=== PATIENT | female | born 1985 | race Caucasian/White ===

== ENCOUNTER 2016-11-29 19:39 | Emergency (ER) | payer BC ==
[2016-11-29 20:08] VITALS: BP 150/86
--- NOTE | 2016-11-29 20:47 | ER Document Report ---
ED Medical Screen (RME) - General Stated Complaint: SORE TROATH Time seen by provider: 20:45 Mode of Arrival: Ambulatory Information source: Patient Notes: 31-year-old female with a sore throat for 3 days has exudate on her right tonsil which is getting larger. There is anterior cervical lymph nodes. No fever. no antibiotics. Airway is open. Uvula is midline. I have greeted and performed a rapid initial assessment of this patient. A comprehensive ED assessment, evaluation of the patient, analysis of test results , and completion of the medical decision making process will be conducted by additional ED providers. TRAVEL OUTSIDE OF THE [place] IN LAST 30 DAYS: No - Related Data Allergies/Adverse Reactions: No Known Allergies Allergy (Verified 08/26/15 20:45) Past Medical History - Past Medical History Cardiac Medical History: Denies: Hx Coronary Artery Disease, Hx Hypertension Pulmonary Medical History: Denies: Hx Asthma Endocrine Medical History: Denies: Hx Diabetes Mellitus Type 1, Hx Diabetes Mellitus Type 2 Renal/ Medical History: Reports: Hx Kidney Stones, Hx Pelvic Inflammatory Disease Past Surgical History: Reports: Hx Cholecystectomy, Hx Gynecologic Surgery - BTL , Hx Tubal Ligation - Immunizations Immunizations up to date: Yes Hx Diphtheria, Pertussis, Tetanus Vaccination: Yes Physical Exam - Vital signs Vitals: Temp Pulse Resp BP Pulse Ox 98.5 F 88 17 150/86 H 100 11/29/16 20:06 11/29/16 20:06 11/29/16 20:06 11/29/16 20:06 11/29/16 20:06 Course - Vital Signs Vital signs: Temp Pulse Resp BP Pulse Ox 98.5 F 88 17 150/86 H 100 11/29/16 20:06 11/29/16 20:06 11/29/16 20:06 11/29/16 20:06 11/29/16 20:06
[2016-11-29 22:11] LABS: ABSOLUTE EOSINOPHILS # (AUTO) 0.1 10^3/uL (0.0-0.6); ABSOLUTE LYMPHOCYTES (AUTO) 1.3 10^3/uL (0.5-4.7); ABSOLUTE MONOCYTES (AUTO) 1.3 10^3/uL (0.1-1.4); ABSOLUTE NEUT (AUTO) 10.4 10^3/uL (1.7-8.2); BASOPHILS % (AUTO) 0.3 % (0-2); EOSINOPHILS % (AUTO) 0.7 % (0-6); HEMOGLOBIN 13.5 g/dL (12.0-15.5); HGB HCT DIFFERENCE 1.5; LYMPHOCYTES % (AUTO) 9.6 % (13-45); MEAN CORPUSCULAR HGB CONC 34.7 g/dL (32.0-36.0); MEAN CORPUSCULAR VOLUME 95 fl (80-97); RED CELL DISTRIBUTION WIDTH 12.3 % (11.5-14.0); SEGMENTED NEUTROPHILS % (AUTO) 79.4 % (42-78); WHITE BLOOD COUNT 13.1 10^3/uL (4.0-10.5)
[2016-11-29] MEDS ORDERED: LIDOCAINE 2% VISCOUS SOLN 20 ML UDCUP PO ONE (23:25)
--- NOTE | 2016-11-29 23:25 | ER Document Report ---
ED ENT - General Mode of Arrival: Ambulatory Information source: Patient TRAVEL OUTSIDE OF THE [place] IN LAST 30 DAYS: No - HPI Patient complains to provider of: Throat problem Onset: Other - x3 days Onset/Duration: Persistent Associated symptoms: Chills <BARBIE JACKSON - Last Filed: 11/30/16 03:07> <RANDEE BENNETT - Last Filed: 11/30/16 03:25> - General Chief Complaint: Sore Throat Stated Complaint: SORE TROATH Notes: Patient is a 31-year-old female that presents to the emergency department today with complaints of right-sided throat pain 3 days. Patient states it feels like "something is cutting her throat" when she swallows. Patient states she has had chills but denies any fevers. (BARBIE JACKSON) - Related Data Allergies/Adverse Reactions: No Known Allergies Allergy (Verified 11/29/16 22:44) Past Medical History - General Information source: Patient, [facility] Records - Social History Smoking Status: Never Smoker Cigarette use (# per day): No Frequency of alcohol use: Rare Drug Abuse: None Lives with: Family Family History: Reviewed & Not Pertinent Patient has suicidal ideation: No Patient has homicidal ideation: No Renal/ Medical History: Reports: Hx Kidney Stones, Hx Pelvic Inflammatory Disease Past Surgical History: Reports: Hx Cholecystectomy, Hx Gynecologic Surgery - bilateral tubal ligation, Hx Tubal Ligation - Immunizations Immunizations up to date: Yes Hx Diphtheria, Pertussis, Tetanus Vaccination: Yes <BARBIE JACKSON - Last Filed: 11/30/16 03:07> Review of Systems - Review of Systems Constitutional: See HPI, Chills. denies: Fever EENT: See HPI, Throat pain - right sided Cardiovascular: No symptoms reported Respiratory: No symptoms reported Gastrointestinal: No symptoms reported Genitourinary: No symptoms reported Female Genitourinary: No symptoms reported Musculoskeletal: No symptoms reported Skin: No symptoms reported Hematologic/Lymphatic: No symptoms reported Neurological/Psychological: No symptoms reported -: Yes All other systems reviewed and negative <BARBIE JACKSON - Last Filed: 11/30/16 03:07> Physical Exam <BARBIE JACKSON - Last Filed: 11/30/16 03:07> <RANDEE BENNETT - Last Filed: 11/30/16 03:25> - Vital signs Vitals: Temp Pulse Resp BP Pulse Ox 98.5 F 88 17 150/86 H 100 11/29/16 20:06 11/29/16 20:06 11/29/16 20:06 11/29/16 20:06 11/29/16 20:06 (BARBIE JACKSON) (RANDEE BENNETT) - Notes Notes: Physical Exam: General: Alert, appears well. HEENT: Normocephalic. Atraumatic. PERRL. Extraocular movements intact. Tonsilith on right tonsil, no erythema or exudate. Neck: Supple. Respiratory: No respiratory distress. Abdominal: Normal Inspection. No distension. Extremities: Moves all four extremities. Neurological: Normal cognition. AAOx4. Normal speech. Psychological: Normal affect. Normal Mood. Skin: Warm. Dry. Normal color. (BARBIE JACKSON) Course - Laboratory Result Diagrams: 11/29/16 21:36 <BARBIE JACKSON - Last Filed: 11/30/16 03:07> - Laboratory Result Diagrams: 11/29/16 21:36 <RANDEE BENNETT - Last Filed: 11/30/16 03:25> - Re-evaluation Re-evalutation: 11/30/16 Patient with stable vitals. No fever. Symptoms and exam are consistent with tonsillith. Patient encouraged to use Listerine and saltwater gargles. Can use lemon drops. No evidence for strep or mono. Discharge home and is to follow-up with her doctor. Stable for discharge. (RANDEE BENNETT) - Vital Signs Vital signs: Temp Pulse Resp BP Pulse Ox 98.5 F 88 17 150/86 H 100 11/29/16 20:06 11/29/16 20:06 11/29/16 20:06 11/29/16 20:06 11/29/16 20:06 (BARBIE JACKSON) (RANDEE BENNETT) - Laboratory Laboratory results interpreted by il: 11/29/16 21:36 WBC 13.1 H Seg Neutrophils % 79.4 H Lymphocytes % 9.6 L Absolute Neutrophils 10.4 H (BARBIE JACKSON) (RANDEE BENNETT) Discharge <BARBIE JACKSON - Last Filed: 11/30/16 03:07> <RANDEE BENNETT - Last Filed: 11/30/16 03:25> - Discharge Clinical Impression: Tonsillith Condition: Stable Disposition: HOME, SELF-CARE Prescriptions: Lidocaine HCl [Xylocaine Viscous] 5 ml PO Q6H PRN #100 ml PRN Reason: Referrals: DICK CORCORAN MD [Primary Care Provider] - Follow up as needed Scribe Attestation: 11/30/16 03:25 I personally performed the services described in the documentation, reviewed and edited the documentation which was dictated to the scribe in my presence, and it accurately records my words and actions. (RANDEE BENNETT) Scribe Documentation - Scribe Written by Frank:: Frank Damon, [id number] 11/30/2016 acting as scribe for :: Nikkie <BARBIE JACKSON - Last Filed: 11/30/16 03:07>
== END 2016-11-29 23:45 | disposition home or self-care (01) ==
LOC: ER 19:39
DX: J35.8 Other chronic diseases of tonsils and adenoids (principal); R68.83 Chills (without fever)
CPT/HCPCS: 99283; 36415; 87070; 87880; 85025; 86308; J3490

== ENCOUNTER 2017-04-15 07:28 | Emergency (ER) | payer BC ==
[2017-04-15] MEDS ORDERED: IBUPROFEN 800 MG TABLET PO ONE (07:55)
--- NOTE | 2017-04-15 08:00 | ER Document Report ---
HPI - HPI Patient complains to provider of: shoulder pain Onset: Other - past two days Onset/Duration: Gradual - after heavy lifting at work Quality of pain: Achy, Burning Pain Level: 3 Exacerbated by: Other - heavy lifting Relieved by: Remaining still Similar symptoms previously: Yes - h/o cervical pinched nerve Recently seen / treated by doctor: No - REPRODUCTIVE Reproductive: DENIES: : Past Medical History - Social History Smoking Status: Unknown if Ever Smoked Family History: Reviewed & Not Pertinent Patient has suicidal ideation: No Patient has homicidal ideation: No - Past Medical History Cardiac Medical History: Denies: Hx Coronary Artery Disease, Hx Hypertension Pulmonary Medical History: Denies: Hx Asthma Endocrine Medical History: Denies: Hx Diabetes Mellitus Type 1, Hx Diabetes Mellitus Type 2 Renal/ Medical History: Reports: Hx Kidney Stones, Hx Pelvic Inflammatory Disease. Denies: Hx Peritoneal Dialysis Past Surgical History: Reports: Hx Cholecystectomy, Hx Gynecologic Surgery - bilateral tubal ligation, Hx Tubal Ligation - Immunizations Immunizations up to date: Yes Hx Diphtheria, Pertussis, Tetanus Vaccination: Yes Vertical Provider Document - CONSTITUTIONAL Agree With Documented VS: Yes Exam Limitations: No Limitations General Appearance: WD/WN, No Apparent Distress - INFECTION CONTROL TRAVEL OUTSIDE OF THE [place] IN LAST 30 DAYS: No - HEENT HEENT: Atraumatic, Normal ENT Exam, Normocephalic, PERRLA - NECK Neck: Normal Inspection. negative: Lymphadenopathy-Left, Lymphadenopathy-Right - RESPIRATORY Respiratory: Breath Sounds Normal, No Respiratory Distress, Chest Non-Tender. negative: Rales, Rhonchi, Wheezing O2 Sat by Pulse Oximetry: 99 - CARDIOVASCULAR Cardiovascular: Regular Rate, Regular Rhythm, No Murmur Pulses: Normal: Radial, Carotid - MUSCULOSKELETAL/EXTREMETIES Musculoskeletal/Extremeties: MAEW, FROM, Tender - palpation of left trapezius, No Edema. negative: Eccymosis - NEURO Level of Consciousness: Awake, Alert, Appropriate Motor/Sensory: No Motor Deficit, No Sensory Deficit - DERM Integumentary: Warm, Dry, No Rash Course - Re-evaluation Re-evalutation: 04/15/17 07:59 Patient is a 31-year-old female who is hemodynamic stable, no acute distress and afebrile. Presentation is consistent with an acute muscle strain of the left trapezius. Patient does not have any focal neurologic deficits, nuchal rigidity. Low index for suspicion of acute subarachnoid hemorrhage, meningitis or mass. Low suspicion for acute life-threatening etiology with intact neuro exam therefore no additional imaging or laboratory testing is indicated. Will discharge patient home with strict follow-up with PCP for within the next week. - Vital Signs Vital signs: Temp Pulse Resp BP Pulse Ox 98 F 74 16 137/88 H 99 04/15/17 07:32 04/15/17 07:32 04/15/17 07:32 04/15/17 07:32 04/15/17 07:32 Discharge - Discharge Clinical Impression: Muscle strain Condition: Good Disposition: HOME, SELF-CARE Instructions: Muscle Strain ([facility]), Exercise Program for the Shoulder ([facility]), Warm Packs ([facility]) Additional Instructions: Please follow up with your primary care provider regarding today's visit if symptoms persist Prescriptions: Ibuprofen [Motrin 800 mg Tablet] 800 mg PO Q8H PRN #30 tab PRN Reason: Methylprednisolone [Medrol Dosepack (4 mg/Tab) 21 Tab/Dosepak] 4 mg PO ASDIR PRN #21 tab.ds.pk PRN Reason: Forms: Elevated Blood Pressure, Special Work Note, Return to Work
[2017-04-15 08:48] VITALS: BP 132/72
== END 2017-04-15 08:48 | disposition home or self-care (01) ==
LOC: ER 07:28
DX: T14.8 Other injury of unspecified body region (principal); M25.519 Pain in unspecified shoulder; X50.0XXA Overexertion from strenuous movement or load, initial encounter; Y99.0 Civilian activity done for income or pay
CPT/HCPCS: 99283

== ENCOUNTER 2018-01-12 08:10 | Emergency (ER) | payer BC ==
[2018-01-12 08:17] VITALS: BP 141/69
--- NOTE | 2018-01-12 08:43 | ER Document Report ---
ED General - General Chief Complaint: Sore Throat Stated Complaint: SORE THROAT Time Seen by Provider: 01/12/18 08:43 Mode of Arrival: Ambulatory Information source: Patient TRAVEL OUTSIDE OF THE [place] IN LAST 30 DAYS: No - HPI Notes: 31-year-old female presents today with sore throat 2 days. Noticed a exudate in the back of her throat this morning. Denies fevers reports chills. Pain is 5 out of 10, throbbing achy. She does have sick contacts around. He was diagnosed with strep. Denies any issues swallowing, drooling or trismus. Has tried [id number] Tylenol with some relief. Worse with time, nothing makes better. Denies shortness of breath, dyspnea, nausea, vomiting, diarrhea , abdominal pain, headaches, wheezing, ST, URI, neck pain, weakness, bowel or bladder dysfunction, saddle anesthesia, numbness or tingling in bilateral upper or lower extremities equally, muscle paralysis, weakness in bilateral upper or lower extremities equally or rash. - Related Data Allergies/Adverse Reactions: No Known Allergies Allergy (Verified 01/12/18 08:11) Past Medical History - General Information source: Patient - Social History Smoking Status: Unknown if Ever Smoked Family History: Reviewed & Not Pertinent - Past Medical History Cardiac Medical History: Denies: Hx Coronary Artery Disease, Hx Hypertension Pulmonary Medical History: Denies: Hx Asthma Endocrine Medical History: Denies: Hx Diabetes Mellitus Type 1, Hx Diabetes Mellitus Type 2 Renal/ Medical History: Reports: Hx Kidney Stones, Hx Pelvic Inflammatory Disease. Denies: Hx Peritoneal Dialysis Past Surgical History: Reports: Hx Cholecystectomy, Hx Gynecologic Surgery - bilateral tubal ligation, Hx Tubal Ligation - Immunizations Immunizations up to date: Yes Hx Diphtheria, Pertussis, Tetanus Vaccination: Yes Review of Systems - Review of Systems Constitutional: No symptoms reported EENT: See HPI Cardiovascular: No symptoms reported Respiratory: No symptoms reported Gastrointestinal: No symptoms reported Genitourinary: No symptoms reported Female Genitourinary: No symptoms reported Musculoskeletal: No symptoms reported Skin: No symptoms reported Hematologic/Lymphatic: No symptoms reported Neurological/Psychological: No symptoms reported Physical Exam - Vital signs Vitals: Temp Pulse Resp BP Pulse Ox 98.2 F 99 18 141/69 H 97 01/12/18 08:14 01/12/18 08:14 01/12/18 08:14 01/12/18 08:14 01/12/18 08:14 - Notes Notes: PHYSICAL EXAMINATION: GENERAL: Well-appearing, well-nourished and in no acute distress. HEAD: Atraumatic, normocephalic. EYES: Pupils equal round and reactive to light, extraocular movements intact, conjunctiva are normal. ENT: Nares patent, oropharynx clear with exudates and erythema. Moist mucous membranes. NECK: Normal range of motion, supple without lymphadenopathy LUNGS: Breath sounds clear to auscultation bilaterally and equal. No wheezes rales or rhonchi. HEART: Regular rate and rhythm without murmurs ABDOMEN: Soft, nontender, nondistended abdomen. No guarding, no rebound. No masses appreciated. Female : deferred Musculoskeletal: Normal range of motion, no pitting or edema. No cyanosis. NEUROLOGICAL: Cranial nerves grossly intact. Normal speech, normal gait. Normal sensory, motor exams PSYCH: Normal mood, normal affect. SKIN: Warm, Dry, normal turgor, no rashes or lesions noted. Course - Re-evaluation Re-evalutation: 01/12/18 09:49 Reevaluation patient, discussed with her that rapid strep is negative that she clinically appears to have strep pharyngitis. Will start her on oral antibiotic , take 3 times a day for 10 days. Salt water gargles. Take [id number] improvement Tylenol as needed. Change to patient 2 days. Follow-up with primary care provider, symptoms become worse return to the emergency room. Patient verbalized understanding plan of care and agree with plan of care. Patient was discharged home. - Vital Signs Vital signs: Temp Pulse Resp BP Pulse Ox 98.2 F 99 18 141/69 H 97 01/12/18 08:14 01/12/18 08:14 01/12/18 08:14 01/12/18 08:14 01/12/18 08:14 Discharge - Discharge Clinical Impression: Tonsillar exudate Condition: Good Disposition: HOME, SELF-CARE Instructions: Strep Throat ([facility]) Prescriptions: Amoxicillin Trihydrate [Amoxil 500 mg Capsule] 500 mg PO TID #30 cap Forms: Return to Work Referrals: DICK CORCORAN MD [Primary Care Provider] - Follow up in 3-5 days (prn)
== END 2018-01-12 09:55 | disposition home or self-care (01) ==
LOC: ER 08:10
DX: R09.89 Other specified symptoms and signs involving the circulatory and respiratory systems (principal); J02.9 Acute pharyngitis, unspecified; R68.83 Chills (without fever); Z20.818 Contact with and (suspected) exposure to other bacterial communicable diseases
CPT/HCPCS: 87070; 87880; 99283

== ENCOUNTER 2018-01-19 23:31 | Emergency (ER) | payer BC ==
[2018-01-20] MEDS ORDERED: DEXAMETHASONE SOD PHOS INJ 10 MG/1 ML VIAL IM ONE (01:23)
--- NOTE | 2018-01-20 01:25 | ER Document Report ---
HPI - HPI Pain Level: 4 Context: Patient is a 32-year-old female presents emergency department after being evaluated approximately 1 week ago and diagnosed with pharyngitis and sent home on amoxicillin. Patient states that she still has sinus congestion, sore throat , nonproductive cough. States it is worse at night when she lies flat. She does admit to history of postnasal drip but does not take a regular allergy medication. She states that she does get some improvement with Benadryl. Denies any fevers or chills, swelling, shortness of breath, dyspnea on exertion , chest pain - CONSTITUTIONAL Constitutional: DENIES: Fever, Chills - EENT EENT: REPORTS: Sore Throat - NEURO Neurology: REPORTS: Headache - GASTROINTESTINAL Gastrointestinal: DENIES: Abdominal Pain - URINARY Urinary: DENIES: Dysuria - REPRODUCTIVE Reproductive: DENIES: : Past Medical History - Social History Smoking Status: Never Smoker Chew tobacco use (# tins/day): No Frequency of alcohol use: None Drug Abuse: None Family History: Reviewed & Not Pertinent Patient has suicidal ideation: No Patient has homicidal ideation: No - Past Medical History Cardiac Medical History: Denies: Hx Coronary Artery Disease, Hx Hypertension Pulmonary Medical History: Denies: Hx Asthma Endocrine Medical History: Denies: Hx Diabetes Mellitus Type 1, Hx Diabetes Mellitus Type 2 Renal/ Medical History: Reports: Hx Kidney Stones, Hx Pelvic Inflammatory Disease. Denies: Hx Peritoneal Dialysis Past Surgical History: Reports: Hx Cholecystectomy, Hx Gynecologic Surgery - bilateral tubal ligation, Hx Tubal Ligation - Immunizations Immunizations up to date: Yes Hx Diphtheria, Pertussis, Tetanus Vaccination: Yes Vertical Provider Document - CONSTITUTIONAL Agree With Documented VS: Yes Notes: PHYSICAL EXAM GENERAL: Alert, interacts well. HEENT: NCAT, pale conjunctiva, extraocular movements intact, pupils PERRL. external ear normal, no evidence of external auditory canal tenderness, blood/ drainage, cerumen impaction, TM intact without evidence of effusion, bulging, injection, MMM, Uvula midline. Airway patent. No evidence of tonsillar enlargement, peritonsillar abscess, retropharyngeal abscess. Minimal pharyngeal erythema NECK: Full range of motion. Supple. Trachea midline. LUNGS: Clear to auscultation bilaterally, no wheezes, rales, or rhonchi. No respiratory distress. HEART: Regular rate and rhythm. No murmurs, gallops, or rubs. EXTREMITIES: Moves all 4 extremities spontaneously. No edema, radial and dorsalis pedis pulses 2/4 bilaterally. No cyanosis. NEUROLOGICAL: Alert and oriented x4. Normal speech. PSYCH: Normal affect, normal mood. SKIN: Warm, dry, normal turgor. No rashes or lesions noted. - INFECTION CONTROL TRAVEL OUTSIDE OF THE [place] IN LAST 30 DAYS: No Course - Re-evaluation Re-evalutation: 01/20/18 01:24 Presentation is most consistent with a viral upper respiratory infection with associated postnasal drip.. Patient is overall well appearance, vitals within normal limits, well-hydrated. Patient denies any headache, neck pain, and has no evidence of meningismus on examination. Lungs are clear bilaterally. No evidence of respiratory distress. Based on clinical exam and history, I do not suspect an acute pneumonia, meningitis, strep pharyngitis, or an acute encephalitis. No laboratory or imaging testing is indicated at this time. Will discharge patient with return precautions and followup recommendations. They are in agreement this plan have verbalized understanding return precautions. - Vital Signs Vital signs: Temp Pulse Resp BP Pulse Ox 98.3 F 88 18 145/75 H 99 01/19/18 23:38 01/19/18 23:38 01/19/18 23:38 01/19/18 23:38 01/19/18 23:38 Discharge - Discharge Clinical Impression: Post-nasal drip Condition: Good Disposition: HOME, SELF-CARE Additional Instructions: Your symptoms today are consistent with postnasal drip. Please take an over-the -counter antihistamine for the daytime such as Claritin or Jacqueline. He can take up to 50 mg of Benadryl at night. Also start taking Afrin over-the- counter which will help with nasal secretions. He can also utilize an over-the- counter decongestant such as pseudoephedrine. Please be sure to rest her throat drink plenty of clear fluids. You can also benefit from TheraFlu p.m. to help with sleeping. Referrals: DICK CORCORAN MD [Primary Care Provider] - Follow up as needed
[2018-01-20 01:51] VITALS: BP 138/75
== END 2018-01-20 01:50 | disposition home or self-care (01) ==
LOC: ER 23:31
DX: R09.82 Postnasal drip (principal); J02.9 Acute pharyngitis, unspecified; R09.81 Nasal congestion; R05 Cough; R51 Headache
CPT/HCPCS: 99282; 96372; J1100

== ENCOUNTER 2018-07-30 11:48 | Emergency (ER) | payer SELFPAY ==
--- NOTE | 2018-07-30 13:11 | ER Document Report ---
HPI - HPI Patient complains to provider of: left arm and leg pain Onset: Other - months Onset/Duration: Intermittent, Persistent Pain Level: 3 Context: 32 yo female [employer] [place] [employer] c/o intermittent left posterior neck, shoulder pain that radiates into hand causing 3-4-5 fingers to get tingly at times. 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 Also intermitten left SI joint area pain that radiates in buttocks and down leg at times, worse after sitting. Associated Symptoms: Other - see above Exacerbated by: Sitting, Movement - left arm chopping and abduction of shoulder Relieved by: Denies Similar symptoms previously: Yes Recently seen / treated by doctor: No - ROS ROS below otherwise negative: Yes Systems Reviewed and Negative: Yes All other systems reviewed and negative - CONSTITUTIONAL Constitutional: DENIES: Fever, Chills - EENT EENT: DENIES: Sore Throat, Ear Pain, Eye problems - NEURO Neurology: REPORTS: Headache. DENIES: Weakness, Vision blurred, Dizzinesss / Vertigo - CARDIOVASCULAR Cardiovascular: DENIES: Chest pain - RESPIRATORY Respiratory: DENIES: Trouble Breathing, Coughing - GASTROINTESTINAL Gastrointestinal: DENIES: Abdominal Pain, Black / Bloody Stools - URINARY Urinary: DENIES: Dysuria, Urgency, Frequency - REPRODUCTIVE Reproductive: DENIES: : - MUSCULOSKELETAL Musculoskeletal: REPORTS: Extremity pain Past Medical History - General Information source: Patient - Social History Smoking Status: Unknown if Ever Smoked Chew tobacco use (# tins/day): No Frequency of alcohol use: Occasional Drug Abuse: None Lives with: Spouse/Significant other Family History: Reviewed & Not Pertinent Patient has suicidal ideation: No Patient has homicidal ideation: No Renal/ Medical History: Reports: Hx Kidney Stones, Hx Pelvic Inflammatory Disease. Denies: Hx Peritoneal Dialysis Past Surgical History: Reports: Hx Cholecystectomy, Hx Gynecologic Surgery - bilateral tubal ligation, Hx Tubal Ligation - Immunizations Immunizations up to date: Yes Hx Diphtheria, Pertussis, Tetanus Vaccination: Yes Vertical Provider Document - CONSTITUTIONAL Agree With Documented VS: Yes Exam Limitations: No Limitations General Appearance: No Apparent Distress - INFECTION CONTROL TRAVEL OUTSIDE OF THE [place] IN LAST 30 DAYS: No - HEENT HEENT: Normocephalic - NECK Neck: Supple - tender left lateral neck and trapezius - BACK Back: Normal Inspection - tender over left SI joint - MUSCULOSKELETAL/EXTREMETIES Musculoskeletal/Extremeties: ANGELES FROM, Tender - see above - NEURO Level of Consciousness: Alert Motor/Sensory: No Sensory Deficit. negative: Weak Motor Strength LUE, Weak Motor Strength LLE Deep Tendon Reflexes: 2+ - kary patellar, 2+ right achilles, 1+ left achilles, 5 + strength to arms and legs/feet/gt toes - DERM Integumentary: No Rash Course - Vital Signs Vital signs: Temp Pulse Resp BP Pulse Ox 97.6 F 90 16 126/75 H 100 07/30/18 12:02 07/30/18 12:02 07/30/18 12:02 07/30/18 12:02 07/30/18 12:02 Discharge - Discharge Clinical Impression: Arm paresthesia, left Left low back pain Qualifiers: Chronicity: acute Sciatica presence: with sciatica Sciatica laterality: sciatica of left side Qualified Code(s): M54.42 - Lumbago with sciatica, left side Strain of left trapezius muscle Qualifiers: Encounter type: initial encounter Qualified Code(s): S46.812A - Strain of other muscles, fascia and tendons at shoulder and upper arm level, left arm, initial encounter Cervical strain Qualifiers: Encounter type: initial encounter Qualified Code(s): S16.1XXA - Strain of muscle, fascia and tendon at neck level, initial encounter Condition: Good Disposition: HOME, SELF-CARE Instructions: Low Back Pain ([facility]), Muscle Relaxers ([facility]), Muscle Strain ([facility]), Myalagia (Muscle Pain) ([facility]), Neck Injury (Cervical Strain) ([facility]), Numbness or Paresthesia ([facility]), Warm Packs ([facility]) Additional Instructions: See your doctor for follow-up because she can order the MRIs as an outpatient basis to evaluate the cervical spine and the lumbar spine may be causing this problem Practice using her body correctly at work that we discussed Muscle relaxer up to 3 times a day Motrin 800 mg up to 3 times a day for inflammation Tylenol up to 4000 mg a day for pain Warm compress Return to the emergency room if worsening symptoms Prescriptions: Ibuprofen [Motrin 800 mg Tablet] 800 mg PO Q8HP PRN #30 tablet PRN Reason: Cyclobenzaprine HCl [Flexeril 10 Mg Tablet] 10 mg PO TIDP PRN #20 tablet PRN Reason: Forms: Return to Work Referrals: SEVERIANO JI MD [ACTIVE STAFF] - Follow up as needed
[2018-07-30 14:10] VITALS: BP 133/73
== END 2018-07-30 14:10 | disposition home or self-care (01) ==
LOC: ER 11:48
DX: S46.812A Strain of other muscles, fascia and tendons at shoulder and upper arm level, left arm, initial encounter (principal); S16.1XXA Strain of muscle, fascia and tendon at neck level, initial encounter; M54.42 Lumbago with sciatica, left side; R20.0 Anesthesia of skin; M79.602 Pain in left arm; M79.605 Pain in left leg; M54.2 Cervicalgia; M25.512 Pain in left shoulder; M79.642 Pain in left hand; R51 Headache; X58.XXXA Exposure to other specified factors, initial encounter
CPT/HCPCS: 99283

== ENCOUNTER 2018-09-16 05:18 | Emergency (ER) | payer SELFPAY ==
[2018-09-16 05:34] VITALS: BP 146/79
[2018-09-16] MEDS ORDERED: KETOROLAC TROMETHAMINE 60 MG/2 ML SDV IM ONE (06:42)
[2018-09-16] MEDS ORDERED: CYCLOBENZAPRINE HCL 10 MG TABLET PO ONE (06:42)
--- NOTE | 2018-09-16 06:48 | ER Document Report ---
ED General - General Chief Complaint: Back Pain Stated Complaint: LEFT SHOULDER PAIN Time Seen by Provider: 09/16/18 06:38 Mode of Arrival: Ambulatory Information source: Patient Notes: 32-year-old female presents emergency department complaints of upper back pain over the last few days. Patient states that she does do heavy lifting at work and thinks that she might of overworked herself. She states that she has had similar pain in the past. She does have a history of pinched nerves in the cervical spine. Patient states that she has tried Tylenol without any relief of symptoms. She states that Motrin upsets her stomach and has not been taking this. Patient denies any numbness tingling or weakness. Patient has full range of motion of her upper extremities. She denies any chest pain or difficulty breathing. TRAVEL OUTSIDE OF THE [place] IN LAST 30 DAYS: No - HPI Onset: Last week Onset/Duration: Gradual Quality of pain: Cramping Severity: Mild Pain Level: 1 Associated symptoms: None Exacerbated by: Movement Relieved by: Denies Similar symptoms previously: Yes Recently seen / treated by doctor: No - Related Data Allergies/Adverse Reactions: No Known Allergies Allergy (Verified 09/16/18 06:21) Past Medical History - General Information source: Patient - Social History Smoking Status: Never Smoker Family History: Reviewed & Not Pertinent Patient has suicidal ideation: No Patient has homicidal ideation: No - Past Medical History Cardiac Medical History: Denies: Hx Coronary Artery Disease, Hx Hypertension Pulmonary Medical History: Denies: Hx Asthma Endocrine Medical History: Denies: Hx Diabetes Mellitus Type 1, Hx Diabetes Mellitus Type 2 Renal/ Medical History: Reports: Hx Kidney Stones, Hx Pelvic Inflammatory Disease. Denies: Hx Peritoneal Dialysis Past Surgical History: Reports: Hx Cholecystectomy, Hx Gynecologic Surgery - bilateral tubal ligation, Hx Tubal Ligation - Immunizations Immunizations up to date: Yes Hx Diphtheria, Pertussis, Tetanus Vaccination: Yes Review of Systems - Review of Systems Constitutional: No symptoms reported EENT: No symptoms reported Cardiovascular: No symptoms reported Respiratory: No symptoms reported Gastrointestinal: No symptoms reported Genitourinary: No symptoms reported Female Genitourinary: No symptoms reported Musculoskeletal: Muscle pain Skin: No symptoms reported Neurological/Psychological: No symptoms reported -: Yes All other systems reviewed and negative Physical Exam - Vital signs Vitals: Temp Pulse Resp BP Pulse Ox 97.9 F 87 17 146/79 H 100 12/01/18 05:34 09/16/18 05:34 09/16/18 05:34 09/16/18 05:34 09/16/18 05:34 - General General appearance: Appears well Notes: PHYSICAL EXAMINATION: GENERAL: Well-appearing, well-nourished and in no acute distress. HEAD: Atraumatic, normocephalic. EYES: Pupils equal round and reactive to light, extraocular movements intact, conjunctiva are normal. ENT: Nares patent, oropharynx clear without exudates. Moist mucous membranes. NECK: Normal range of motion, supple without lymphadenopathy LUNGS: Breath sounds clear to auscultation bilaterally and equal. No wheezes rales or rhonchi. HEART: Regular rate and rhythm without murmurs ABDOMEN: Soft, nontender, nondistended abdomen. No guarding, no rebound. No masses appreciated. Female : deferred Musculoskeletal: Tenderness to palpation in the parathoracic muscles bilaterally. More pain appreciated with palpation on the left than right. No midline spinal tenderness to palpation. No cyanosis. Full ROM of the upper and lower extremities. NEUROLOGICAL: Cranial nerves grossly intact. Normal speech, normal gait. Normal sensory, motor exams PSYCH: Normal mood, normal affect. SKIN: Warm, Dry, normal turgor, no rashes or lesions noted. Course - Re-evaluation Re-evalutation: 09/16/18 06:46 Pain reproducible with palpation of the parathoracic muscles. No spinal tenderness. No history of trauma. Patient has done heavy lifting at work. Thinks she pulled a muscle. Given toradol and flexeril in the emergency department. I will discharge the patient home with a prescription for Flexeril. I instructed the patient to continue to taking Tylenol as needed, to follow-up with her primary care physician this week, and to return for worsening symptoms. Patient is agreeable with plan of care. - Vital Signs Vital signs: Temp Pulse Resp BP Pulse Ox 97.9 F 87 17 146/79 H 100 09/16/18 05:34 09/16/18 05:34 09/16/18 05:34 09/16/18 05:34 09/16/18 05:34 Discharge - Discharge Clinical Impression: Acute thoracic myofascial strain Qualifiers: Encounter type: initial encounter Qualified Code(s): S29.019A - Strain of muscle and tendon of unspecified wall of thorax, initial encounter Condition: Good Disposition: HOME, SELF-CARE Instructions: Muscle Strain ([facility]) Prescriptions: Cyclobenzaprine HCl [Flexeril 10 mg Tablet] 10 mg PO TIDP PRN #15 tab PRN Reason: Referrals: KENYETTA MERCER MD [ACTIVE STAFF] - Follow up as needed
== END 2018-09-16 07:00 | disposition home or self-care (01) ==
LOC: ER 05:18
DX: S29.012A Strain of muscle and tendon of back wall of thorax, initial encounter (principal); X50.0XXA Overexertion from strenuous movement or load, initial encounter; Y99.0 Civilian activity done for income or pay
CPT/HCPCS: 99283; 96372; J1885

== ENCOUNTER 2018-09-27 20:18 | Emergency (ER) | payer SELFPAY | END 2018-09-27 20:40 | disposition left against medical advice (07) | LOC: ER 20:18 | DX: Z53.21 Procedure and treatment not carried out due to patient leaving prior to being seen by health care provider (principal) ==

== ENCOUNTER 2018-09-29 08:13 | Emergency (ER) | payer SELFPAY ==
--- NOTE | 2018-09-29 08:42 | ER Document Report ---
ED General - General Chief Complaint: Sore Throat Stated Complaint: SORE THROAT Time Seen by Provider: 09/29/18 08:40 Notes: Patient is a 32-year-old female that presents to the emergency department for chief complaint of sore throat, laryngitis, congestion, and cough. Patient's been having the symptoms for about 5 days now, initially started with sore throat and laryngitis on Tuesday, she has been using [id number] medications without much relief. She is concerned because her is on high-dose steroids, and does not want to infect him with what she has been having. She denies having any fevers, chills, night sweats, chest pain, difficulty breathing, nausea, vomiting or abdominal pain. Past Medical History: Denies chronic medical conditions Past Surgical History: Tubal ligation Social History: Denies tobacco, alcohol or drug use. Family History: Reviewed and noncontributory for presenting illness Allergies: Reviewed, see documented allergy list. REVIEW OF SYSTEMS: Other than noted above, the 12 point review of systems was reviewed with the patient and were negative, all pertinent findings are included in the HPI. PHYSICAL EXAMINATION: Vital signs reviewed, nursing noted reviewed. GENERAL: Well-appearing, well-nourished and in no acute distress. HEAD: Atraumatic, normocephalic. EYES: Eyes appear normal, extraocular movements intact, sclera anicteric, conjunctiva are normal. ENT: nares patent, oropharynx clear without exudates. Moist mucous membranes. TMs appear normal bilaterally. Raspy voice, no stridor NECK: Normal range of motion, supple without lymphadenopathy, no stridor LUNGS: Breath sounds clear to auscultation bilaterally and equal. No wheezes rales or rhonchi. HEART: Regular rate and rhythm without murmurs ABDOMEN: Soft, nontender, normoactive bowel sounds. No rebound, guarding, or rigidity. No masses appreciated. EXTREMITIES: Nontender, good range of motion, no pitting or edema. NEUROLOGICAL: No focal neurological deficits. Moves all extremities spontaneously Motor and sensory grossly intact on exam. PSYCH: Normal mood, normal affect. SKIN: Warm, Dry, normal turgor, no rashes or lesions noted on exposed skin TRAVEL OUTSIDE OF THE [place] IN LAST 30 DAYS: No - Related Data Allergies/Adverse Reactions: No Known Allergies Allergy (Verified 09/29/18 08:17) Past Medical History - Social History Smoking Status: Never Smoker Family History: Reviewed & Not Pertinent - Past Medical History Cardiac Medical History: Denies: Hx Coronary Artery Disease, Hx Hypertension Pulmonary Medical History: Denies: Hx Asthma Endocrine Medical History: Denies: Hx Diabetes Mellitus Type 1, Hx Diabetes Mellitus Type 2 Renal/ Medical History: Reports: Hx Kidney Stones, Hx Pelvic Inflammatory Disease. Denies: Hx Peritoneal Dialysis Past Surgical History: Reports: Hx Cholecystectomy, Hx Gynecologic Surgery - bilateral tubal ligation, Hx Tubal Ligation - Immunizations Immunizations up to date: Yes Hx Diphtheria, Pertussis, Tetanus Vaccination: Yes Physical Exam - Vital signs Vitals: Temp Pulse Resp BP Pulse Ox 99.1 F 92 14 147/96 H 98 09/29/18 08:24 09/29/18 08:24 09/29/18 08:24 09/29/18 08:24 09/29/18 08:24 Course - Re-evaluation Re-evalutation: Presentation is most consistent with a upper respiratory infection. Patient is overall well appearance, vitals within normal limits, well-hydrated. Patient denies any headache, neck pain, and has no evidence of meningismus on examination. Lungs are clear bilaterally. No evidence of respiratory distress. Based on clinical exam and history, I do not suspect an acute pneumonia, meningitis, strep pharyngitis, or an acute encephalitis. Chest x-ray negative, will discharge the patient home with Flonase, and 5 days of prednisone to help with some of her symptoms, and to follow-up with her primary care physician. Will discharge patient with return precautions and followup recommendations. They are in agreement this plan have verbalized understanding return precautions. - Vital Signs Vital signs: Temp Pulse Resp BP Pulse Ox 98.9 F 87 16 154/87 H 99 09/29/18 10:26 09/29/18 10:26 09/29/18 10:26 09/29/18 10:26 09/29/18 10:26 Discharge - Discharge Clinical Impression: URI (upper respiratory infection) Qualifiers: URI type: unspecified URI Qualified Code(s): J06.9 - Acute upper respiratory infection, unspecified Condition: Stable Disposition: HOME, SELF-CARE Instructions: Upper Respiratory Illness ([facility]) Additional Instructions: Please take medications as prescribed, you can continue [id number] medications that you have been taken to help with symptom control, please follow -up with the primary care physician, if you develop fevers or symptoms that are not improving or worsening over the next 7 days, then please return to the emergency department. Prescriptions: Fluticasone Propionate [Flonase Nasal Chilo 50 Mcg/Chilo 16 gm] 1 spray NASL Q12 #1 inhaler Prednisone [Deltasone 20 mg Tablet] 2 tab PO DAILY #10 tablet Referrals: AKANKSHA MATSON MD [ACTIVE STAFF] - Follow up in 3-5 days (or your primary car.e )
--- NOTE | 2018-09-29 09:31 | RADIOLOGY REPORT (SQ) ---
EXAM DESCRIPTION: CHEST 2 VIEWS COMPLETED DATE/TIME: 09/29/2018 9:12 am REASON FOR STUDY: cough COMPARISON: 01/20/2008 EXAM PARAMETERS: NUMBER OF VIEWS: two views TECHNIQUE: Digital Frontal and Lateral radiographic views of the chest acquired. RADIATION DOSE: NA LIMITATIONS: none FINDINGS: LUNGS AND PLEURA: No opacities, masses or pneumothorax. No pleural effusion. MEDIASTINUM AND HILAR STRUCTURES: No masses or contour abnormalities. HEART AND VASCULAR STRUCTURES: Heart normal size. No evidence for failure. BONES: No acute findings. HARDWARE: None in the chest. OTHER: No other significant finding. IMPRESSION: No acute abnormality of the lungs. No focal airspace opacity. TECHNICAL DOCUMENTATION: JOB ID: [id number] [employer]- All Rights Reserved Reading location - IP/workstation name: [email or web address]
[2018-09-29 10:13] LABS: A TYPE INFLUENZA AG NEGATIVE (NEGATIVE); B INFLUENZA AG NEGATIVE (NEGATIVE)
[2018-09-29 10:28] VITALS: BP 154/87
== END 2018-09-29 10:26 | disposition home or self-care (01) ==
LOC: ER 08:13
DX: J06.9 Acute upper respiratory infection, unspecified (principal); Z90.49 Acquired absence of other specified parts of digestive tract; Z98.51 Tubal ligation status; Z87.442 Personal history of urinary calculi
CPT/HCPCS: 71046; 87804; 99283

== ENCOUNTER 2018-11-10 09:19 | Emergency (ER) | payer SELFPAY ==
[2018-11-10 09:24] VITALS: BP 130/79
[2018-11-10] MEDS ORDERED: LIDOCAINE 5% (700 MG) TRANSDERMAL ADH..PATCH TP ONE (09:34)
[2018-11-10] MEDS ORDERED: IBUPROFEN 800 MG TABLET PO ONE (09:34)
--- NOTE | 2018-11-10 09:39 | ER Document Report ---
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 Patient complains of persistent pain since then. Patient denies any cough or cold symptoms or urinary symptoms. Patient feels that she pulled a muscle. Associated Symptoms: Other - Upper back pain. denies: Fever, Headache Exacerbated by: Movement Relieved by: Remaining still Similar symptoms previously: Yes Recently seen / treated by doctor: No - ROS ROS below otherwise negative: Yes Systems Reviewed and Negative: Yes All other systems reviewed and negative - CONSTITUTIONAL Constitutional: DENIES: Fever - NEURO Neurology: DENIES: Headache, Weakness - RESPIRATORY Respiratory: DENIES: Coughing - GASTROINTESTINAL Gastrointestinal: DENIES: Nausea - REPRODUCTIVE Reproductive: DENIES: : - MUSCULOSKELETAL Musculoskeletal: REPORTS: Back Pain. DENIES: Extremity pain, Neck Pain - DERM Skin Color: Normal Skin Problems: None Past Medical History - General Information source: Patient - Social History Smoking Status: Never Smoker Frequency of alcohol use: None Drug Abuse: None Occupation: [employer] Lives with: Spouse/Significant other Family History: Reviewed & Not Pertinent Pulmonary Medical History: Denies: Hx Asthma Renal/ Medical History: Reports: Hx Kidney Stones, Hx Pelvic Inflammatory Disease. Denies: Hx Peritoneal Dialysis Past Surgical History: Reports: Hx Cholecystectomy, Hx Gynecologic Surgery - bilateral tubal ligation, Hx Tubal Ligation - Immunizations Immunizations up to date: Yes Hx Diphtheria, Pertussis, Tetanus Vaccination: Yes Vertical Provider Document - CONSTITUTIONAL Agree With Documented VS: Yes Exam Limitations: No Limitations General Appearance: WD/WN, No Apparent Distress - INFECTION CONTROL TRAVEL OUTSIDE OF THE [place] IN LAST 30 DAYS: No - HEENT HEENT: Atraumatic, Normocephalic - NECK Neck: Normal Inspection, Supple. negative: Lymphadenopathy-Left, Lymphadenopathy-Right - RESPIRATORY Respiratory: Breath Sounds Normal, No Respiratory Distress - CARDIOVASCULAR Cardiovascular: Regular Rate, Regular Rhythm - BACK Back: Abnormal Inspection - bilat thoracic paraspinal muscle tenderness with spasm. negative: CVA Tenderness-Right, CVA Tenderness-Left - MUSCULOSKELETAL/EXTREMETIES Musculoskeletal/Extremeties: MONISHA REYNOSO - NEURO Level of Consciousness: Awake, Alert, Appropriate Motor/Sensory: No Motor Deficit, No Sensory Deficit - DERM Integumentary: Warm, Dry, No Rash Course - Re-evaluation Re-evalutation: 11/10/18 09:37 The patient presents with low back pain without signs of spinal cord co mpression, cauda equina syndrome, infection, aneurysm, or other serious etiology. The patient is neurologically intact. Given the extremely risk of these diagnoses further testing and evaluation for these possibilities does not appear to be indicated at this time. Patient has been instructed to return if the symptoms worsen or change in any way. - Vital Signs Vital signs: Temp Pulse Resp BP Pulse Ox 97.8 F 80 20 130/79 H 99 11/10/18 09:23 11/10/18 09:23 11/10/18 09:23 11/10/18 09:23 11/10/18 09:23 Discharge - Discharge Clinical Impression: Upper back strain Qualifiers: Encounter type: initial encounter Qualified Code(s): S29.012A - Strain of muscle and tendon of back wall of thorax, initial encounter Condition: Stable Disposition: HOME, SELF-CARE Instructions: Muscle Relaxers ([facility]), Muscle Strain ([facility]), Upper Back Strain ([facility]), Warm Packs ([facility]) Additional Instructions: Return immediately for any new or worsening symptoms Followup with your primary care provider, call tomorrow to make a followup appointment Prescriptions: Cyclobenzaprine HCl [Flexeril 10 Mg Tablet] 10 mg PO TID #15 tablet Naproxen [Naprosyn 250 Nmg Tablet] 1 tab PO BID #14 tablet Forms: Return to Work Referrals: [facility] [Provider Group] - Follow up as needed
== END 2018-11-10 09:50 | disposition home or self-care (01) ==
LOC: ER 09:19
DX: S29.012A Strain of muscle and tendon of back wall of thorax, initial encounter (principal); M54.9 Dorsalgia, unspecified; M54.6 Pain in thoracic spine; X50.0XXA Overexertion from strenuous movement or load, initial encounter; X50.9XXA Other and unspecified overexertion or strenuous movements or postures, initial encounter; Y99.0 Civilian activity done for income or pay
CPT/HCPCS: 99283

== ENCOUNTER 2018-12-16 16:51 | Emergency (ER) | payer SELFPAY ==
--- NOTE | 2018-12-16 17:36 | ER Document Report ---
HPI - HPI Time Seen by Provider: 12/16/18 17:05 Pain Level: 2 Context: Patient is a 33-year-old female who presents to the emergency apartment with a chief complaint of a rash to her left upper arm. She started noticing the rash about 5-6 days ago. She has also noticed some blistering to the area. She has not seen her primary care provider in regards to this issue. She states that she does feel a little off, but is able to deal with her symptoms. She does fe el like her stomach is a little upset. She denies any fever or body aches. Denies shortness of breath, nausea, difficulty breathing, or vomiting. - CONSTITUTIONAL Constitutional: DENIES: Fever, Chills - EENT EENT: DENIES: Sore Throat - NEURO Neurology: REPORTS: Headache - CARDIOVASCULAR Cardiovascular: DENIES: Chest pain - RESPIRATORY Respiratory: DENIES: Coughing - GASTROINTESTINAL Gastrointestinal: DENIES: Abdominal Pain - REPRODUCTIVE Reproductive: DENIES: : - DERM Skin Color: Normal Skin Problems: Rash - Left upper arm Past Medical History - General Information source: Patient - Social History Smoking Status: Never Smoker Frequency of alcohol use: Occasional Drug Abuse: None Family History: Reviewed & Not Pertinent - Past Medical History Cardiac Medical History: Denies: Hx Coronary Artery Disease, Hx Hypertension Pulmonary Medical History: Denies: Hx Asthma Endocrine Medical History: Denies: Hx Diabetes Mellitus Type 1, Hx Diabetes Mellitus Type 2 Renal/ Medical History: Reports: Hx Kidney Stones, Hx Pelvic Inflammatory Disease. Denies: Hx Peritoneal Dialysis Past Surgical History: Reports: Hx Cholecystectomy, Hx Gynecologic Surgery - bilateral tubal ligation, Hx Tubal Ligation - Immunizations Immunizations up to date: Yes Hx Diphtheria, Pertussis, Tetanus Vaccination: Yes Vertical Provider Document - CONSTITUTIONAL Agree With Documented VS: Yes Exam Limitations: No Limitations General Appearance: No Apparent Distress - INFECTION CONTROL TRAVEL OUTSIDE OF THE [place] IN LAST 30 DAYS: No - HEENT HEENT: Atraumatic, Normocephalic - NECK Neck: Normal Inspection - RESPIRATORY Respiratory: No Respiratory Distress - CARDIOVASCULAR Cardiovascular: Regular Rate - MUSCULOSKELETAL/EXTREMETIES Musculoskeletal/Extremeties: FROM - NEURO Level of Consciousness: Awake, Alert, Appropriate Motor/Sensory: No Motor Deficit, No Sensory Deficit - DERM Integumentary: Warm, Dry, Rash - Left upper arm Course - Re-evaluation Re-evalutation: 12/16/18 17:37 Patient's left upper arm rash is most consistent with herpes zoster. She will be treated with acyclovir. I do not suspect necrotizing fasciitis. Verbal discharge instructions were given to the patient. They verbalized understanding. They are stable for discharge. - Vital Signs Vital signs: Temp Pulse Resp BP Pulse Ox 98.2 F 78 18 160/71 H 99 12/16/18 16:57 12/16/18 16:57 12/16/18 16:57 12/16/18 16:57 12/16/18 16:57 Discharge - Discharge Clinical Impression: Zoster Qualifiers: Herpes zoster complications: without complications Qualified Code(s): B02.9 - Zoster without complications Condition: Stable Disposition: HOME, SELF-CARE Additional Instructions: Shingles You have shingles. Shingles is caused by the chicken pox virus, The virus has been surviving dormant in a nerve cell since you had chicken pox years ago. The virus has spread down a nerve root to reach the skin. Typically, an band-like area of pain and skin sensitivity develops, then small blisters erupt in the area. Shingles lasts two or three weeks, but sometimes leaves persistent pain. You are contagious -- you can give children chicken pox. But you can't give anyone shingles. Antiviral medicines (such as acyclovir or famciclovir) can help, but the rash usually worsens for about a week. Pain medication is often given if the area hurts. Antihistamines such as Benadryl may be necessary for itching if it does not respond to soda baths and calamine lotion. Sometimes cortisone medicine or nerve-block shots are necessary if pain is severe. If the area remains severely painful as the sores heal, or if you suspect an infection developing in the sores, see your doctor. Prescriptions: Acyclovir [Zovirax 800 mg Tablet] 800 mg PO 5XD 10 Days #50 tab Forms: Return to Work Referrals: PHILIP TERRAZAS MD [Primary Care Provider] - Follow up as needed
[2018-12-16 18:24] VITALS: BP 140/76
== END 2018-12-16 18:08 | disposition home or self-care (01) ==
LOC: ER 16:51
DX: B02.9 Zoster without complications (principal); R19.8 Other specified symptoms and signs involving the digestive system and abdomen; R51 Headache
CPT/HCPCS: 99282

== ENCOUNTER 2018-12-23 01:23 | Emergency (ER) | payer SELFPAY ==
--- NOTE | 2018-12-23 03:31 | RADIOLOGY REPORT (SQ) ---
EXAM DESCRIPTION: CT HEAD WITHOUT IV CONTRAST COMPLETED DATE/TME: 12/23/2018 02:50 CLINICAL HISTORY: 33 years, Female, headache COMPARISON: None. TECHNIQUE: 290 Images stored on PACS. All CT scanners at this facility use dose modulation, iterative reconstruction, and/or weight based dosing when appropriate to reduce radiation dose to as low as reasonably achievable (ALARA). [facility]: Dose Right [facility]: CareDose [facility]: Dose Right [facility]: Teradose 4D [facility]: Numerex LIMITATIONS: None. FINDINGS: The globes are intact. Polyps of the left maxillary sinus. No displaced or depressed skull fracture. No intra or extra-axial hemorrhage. CT is limited for evaluation of acute infarct. No CT evidence for large or territorial acute infarct. No mass or midline shift IMPRESSION: Polyps of the left maxillary sinus. Remainder unremarkable TECHNICAL DOCUMENTATION: Quality ID # [id number]: Final reports with documentation of one or more dose reduction techniques (e.g., Automated exposure control, adjustment of the mA and/or kV according to patient size, use of iterative reconstruction technique) copyright 2011 [employer]- All Rights Reserved
[2018-12-23] MEDS ORDERED: METOCLOPRAMIDE HCL 10 MG TABLET PO ONE (04:01)
[2018-12-23] MEDS ORDERED: KETOROLAC TROMETHAMINE INJ/PF 30 MG/1 ML SDV IM ONE (04:01)
[2018-12-23 05:08] VITALS: BP 120/77
--- NOTE | 2018-12-23 05:19 | ER Document Report ---
ED General - General Chief Complaint: Headache Stated Complaint: HEADACHE Time Seen by Provider: 12/23/18 02:43 Primary Care Provider: RAULITO PHAM MD [Primary Care Provider] - Follow up as needed Notes: Patient is a pleasant 33-year-old female presents with complaints of a headache. Patient says that she was diagnosed with shingles in her left arm approximately week ago. She is placed on acyclovir. Around same time she started noticing headache. She says she thinks maybe the headache started before beginning acyclovir but she is not 100% sure. So the headache started as mild bilateral temporal type headache has gradually worsened over the last several days. No vomiting. No nausea. No fevers. No rash on her face. Patient says that she does notice some tingling type sensation into her left leg and left arm. She says she thinks tingling numb sensation in her left leg is chronic from her back. She thinks left arm is related to shingles but she is not sure. She denies any recent trauma or injuries. No other complaints at this time. TRAVEL OUTSIDE OF THE [place] IN LAST 30 DAYS: No - Related Data Allergies/Adverse Reactions: No Known Allergies Allergy (Verified 12/23/18 03:50) Past Medical History - Social History Smoking Status: Never Smoker Frequency of alcohol use: Rare Drug Abuse: None Family History: Reviewed & Not Pertinent Patient has suicidal ideation: No Patient has homicidal ideation: No - Past Medical History Cardiac Medical History: Denies: Hx Coronary Artery Disease, Hx Hypertension Pulmonary Medical History: Denies: Hx Asthma Endocrine Medical History: Denies: Hx Diabetes Mellitus Type 1, Hx Diabetes Mellitus Type 2 Renal/ Medical History: Reports: Hx Kidney Stones, Hx Pelvic Inflammatory Disease. Denies: Hx Peritoneal Dialysis Past Surgical History: Reports: Hx Cholecystectomy, Hx Gynecologic Surgery - bilateral tubal ligation, Hx Tubal Ligation - Immunizations Immunizations up to date: Yes Hx Diphtheria, Pertussis, Tetanus Vaccination: Yes Review of Systems - Review of Systems Notes: My Normal Review Basic REVIEW OF SYSTEMS: CONSTITUTIONAL : Denies fever, chills, or sweats. Denies recent illness. EENT: Denies eye, ear, throat, or mouth pain or symptoms. Denies nasal or sinus congestion. RESPIRATORY: Denies cough, cold, or chest congestion. Denies shortness of breath, difficulty breathing, or wheezing. MUSCULOSKELETAL: Denies neck or back pain or joint pain or swelling. SKIN: Denies rash or skin lesions. NEUROLOGICAL: Denies altered mental status or loss of consciousness. A headache. Denies weakness or paralysis or loss of use of either side. Denies problems with gait or speech. Denies sensory or motor loss. ALL OTHER SYSTEMS REVIEWED AND NEGATIVE. Physical Exam - Vital signs Vitals: Temp Pulse Resp BP Pulse Ox 99.2 F 89 19 150/87 H 100 12/23/18 01:27 12/23/18 01:27 12/23/18 01:27 12/23/18 01:12/23/18 01:27 - Notes Notes: General Appearance: Well nourished, alert, cooperative, no acute distress, no obvious discomfort. Well-appearing. Vitals: reviewed, See vital signs table. Head: no swelling or tenderness to the head. No rash or skin lesions seen on head or face. Eyes: PERRL, EOMI, Conjuctiva clear Mouth: No decreasd moisture Throat: No tonsillar inflammation, No airway obstruction, No lymphadenopathy Neck: Supple, no neck tenderness, No thyromegaly Abdomen: Normal BS, soft, No rigidity, No abdominal tenderness, No guarding, no rebound, no abdominal masses, no organomegaly Extremities: strength 5/5 in all extremities, good pulses in all extremities, no swelling or tenderness in the extremities, no edema. Skin: Small localized area of rash from the left upper arm. This could potentially be shingles. It is now in the later stage. Patient says it was excoriated earlier but that has since scabbed over. Minimally tender to palpation. No surrounding erythema. Neuro: speech clear, oriented x 3, normal affect, responds appropriately to questions. Cranial nerves II through XII are intact. Distal sensation intact. Patient moves all extremities without difficulty. Coordination of movement Course - Re-evaluation Re-evalutation: 12/23/18 05:21 Patient's headache is much improved. She feels well. I feel she is safe to be discharged home. I do not suspect subarachnoid hemorrhage as the patient's headache has been gradual onset over the last several days. CT scan was obtained because the patient was complaining of some numbness and tingling into the left side extremities. Patient says she thinks the numbness and tingling in her left leg is chronic from her back. She said the symptoms in her arm has been ongoing since the shingles rash occurred. The headache could be being caused by acyclovir however the patient is unsure if the headache was actually ongoing before acyclovir was started. I will prescribe her Reglan assisted to help her headache here. I informed her to keep her appointment with her doctor this coming week for follow-up. I encouraged her to return to formula if she has worsening recurrent headaches, any rash on her face, or if she feels unwell in any way. Patient agrees with plan and will be discharged home. Dictation of this chart was performed using voice recognition software; therefore, there may be some unintended grammatical errors. - Vital Signs Vital signs: Temp Pulse Resp BP Pulse Ox 98.9 F 72 20 120/77 99 12/23/18 05:08 12/23/18 05:08 12/23/18 05:08 12/23/18 05:08 12/23/18 05:08 Discharge - Discharge Clinical Impression: Headache Condition: Good Disposition: HOME, SELF-CARE Additional Instructions: Your CT scan of your head was normal appearing. Please take the Reglan medication as needed for headache. On rare occasions Reglan can cause your muscles to feel as if they are jumping. If this occurs then he can take 25 mg of Benadryl and that will help resolve the symptoms. Please return to the ER if you have worsening recurrent headaches, fevers, or any rash on your head or face. Prescriptions: Metoclopramide HCl [Reglan 10 mg Tablet] 1 tab PO ASDIR PRN #25 tablet PRN Reason: Forms: Return to Work Referrals: RAULITO PHAM MD [Primary Care Provider] - Follow up as needed
== END 2018-12-23 05:28 | disposition home or self-care (01) ==
LOC: ER 01:23
DX: R51 Headache (principal); R20.2 Paresthesia of skin; R20.0 Anesthesia of skin
CPT/HCPCS: 99284; 96372; 70450; J1885

== ENCOUNTER 2019-03-05 10:30 | Emergency (ER) | payer BC, MEDICAID, OTHER ==
--- NOTE | 2019-03-05 11:29 | RADIOLOGY REPORT (SQ) ---
EXAM DESCRIPTION: ANKLE RIGHT COMPLETE COMPLETED DATE/TIME: 03/05/2019 11:14 am REASON FOR STUDY: pain with ambulation COMPARISON: None. NUMBER OF VIEWS: Three views. TECHNIQUE: AP, lateral, and oblique radiographic images acquired of the right ankle. LIMITATIONS: None. FINDINGS: MINERALIZATION: Normal. BONES: No acute fracture or dislocation. No worrisome bone lesions. Incidental heel spur. JOINTS: No effusions. SOFT TISSUES: No soft tissue swelling. No foreign body. OTHER: No other significant finding. IMPRESSION: NEGATIVE STUDY OF THE RIGHT ANKLE. NO RADIOGRAPHIC EVIDENCE OF ACUTE INJURY. TECHNICAL DOCUMENTATION: JOB ID: [id number] [employer]- All Rights Reserved Reading location - IP/workstation name: [email or web address]
--- NOTE | 2019-03-05 11:53 | ER Document Report ---
HPI - HPI Patient complains to provider of: Right ankle pain Time Seen by Provider: 03/05/19 11:50 Onset: Yesterday Onset/Duration: Sudden Quality of pain: Achy Severity: Moderate Pain Level: 3 Context: Patient presents emergency department with complaints of right ankle pain. She was at her daughter's recital when she rolled her ankle. She reports lateral ankle pain also complains of pain dorsally on her foot that radiates up her right lower leg. No other complaints such as fever vomiting diarrhea. Reports it hurts when she puts pressure on it but is able to walk. - REPRODUCTIVE Reproductive: DENIES: : Past Medical History - General Information source: Patient - Social History Smoking Status: Unknown if Ever Smoked Cigarette use (# per day): No Frequency of alcohol use: None Drug Abuse: None Lives with: Family Family History: Reviewed & Not Pertinent Patient has suicidal ideation: No Patient has homicidal ideation: No - Past Medical History Cardiac Medical History: Denies: Hx Coronary Artery Disease, Hx Hypertension Pulmonary Medical History: Denies: Hx Asthma Endocrine Medical History: Denies: Hx Diabetes Mellitus Type 1, Hx Diabetes Mellitus Type 2 Renal/ Medical History: Reports: Hx Kidney Stones, Hx Pelvic Inflammatory Disease. Denies: Hx Peritoneal Dialysis Past Surgical History: Reports: Hx Cholecystectomy, Hx Gynecologic Surgery - bilateral tubal ligation, Hx Tubal Ligation - Immunizations Immunizations up to date: Yes Hx Diphtheria, Pertussis, Tetanus Vaccination: Yes Vertical Provider Document - CONSTITUTIONAL Agree With Documented VS: Yes Exam Limitations: No Limitations General Appearance: No Apparent Distress - INFECTION CONTROL TRAVEL OUTSIDE OF THE [place] IN LAST 30 DAYS: No - HEENT HEENT: Atraumatic, Normocephalic - NECK Neck: Supple - RESPIRATORY Respiratory: No Respiratory Distress - CARDIOVASCULAR Cardiovascular: Regular Rate - MUSCULOSKELETAL/EXTREMETIES Musculoskeletal/Extremeties: MAEW, FROM, Tender - Right lateral ankle and right dorsal shaft tender to palpation no obvious deformity no erythema no warmth good cap refill good pedal pulse no swelling - NEURO Level of Consciousness: Awake, Alert, Appropriate Motor/Sensory: No Motor Deficit - DERM Integumentary: Warm, Dry Course - Re-evaluation Re-evalutation: 03/05/19 12:00 Patient instructed on negative x-ray, instructed on rest ice elevate Ole wrap for comfort. Instructed on Motrin follow-up with orthopedics for continued pain she verbalized understanding to all instructions Dictation of this chart was performed using voice recognition software; therefore, there may be some unintended grammatical errors. - Vital Signs Vital signs: Temp Pulse Resp BP Pulse Ox 98.6 F 95 16 137/77 H 95 03/05/19 10:54 03/05/19 10:54 03/05/19 10:54 03/05/19 10:54 03/05/19 10:54 - Diagnostic Test Radiology reviewed: Image reviewed, Reports reviewed - EXAM DESCRIPTION: ANKLE RIGHT COMPLETE COMPLETED DATE/TIME: 03/05/2019 11:14 am REASON FOR STUDY: pain with ambulation COMPARISON: None. NUMBER OF VIEWS: Three views. TECHNIQUE: AP, lateral, and oblique radiographic images acquired of the right ankle. LIMITATIONS: None. FINDINGS: MINERALIZATION: Normal. BONES: No acute fracture or dislocation. No worrisome bone lesions. Incidental heel spur. JOINTS: No effusions. SOFT TISSUES: No soft tissue swelling. No foreign body. OTHER: No other significant finding. IMPRESSION: NEGATIVE STUDY OF THE RIGHT ANKLE. NO RADIOGRAPHIC EVIDENCE OF ACUTE INJURY. Procedures - Immobilization Right Ankle Immobilizer type: Ole wrap Performed by: PCT Post-Proc Neuro Vasc Exam: Unchanged from pre-exam Alignment checked and good: Yes Discharge - Discharge Clinical Impression: Right ankle pain Qualifiers: Chronicity: acute Qualified Code(s): M25.571 - Pain in right ankle and joints of right foot Condition: Stable Disposition: HOME, SELF-CARE Instructions: Acetaminophen, Ole Wrap ([facility]), Ice & Elevation ([facility]) Additional Instructions: *You have been evaluated for an ankle injury *Rest/Ice/Elevate your ankle *Maintain the ole wrap for the next three days for comfort *Follow up with your primary care provider for recheck within 1 week and referral to orthopedics as indicated *Take motrin as indicated *Return to ED for worsening condition, changes, needs Forms: Return to Work Referrals: RAULITO PHAM MD [Primary Care Provider] - Follow up as needed
[2019-03-05] MEDS ORDERED: IBUPROFEN 800 MG TABLET PO ONE (11:56)
[2019-03-05 12:18] VITALS: BP 120/71
== END 2019-03-05 12:20 | disposition home or self-care (01) ==
LOC: ER 10:30
DX: M25.571 Pain in right ankle and joints of right foot (principal); X50.1XXA Overexertion from prolonged static or awkward postures, initial encounter
CPT/HCPCS: 99283

== ENCOUNTER 2019-08-15 12:16 | Emergency (ER) | payer BC, MEDICAID ==
[2019-08-15 12:22] VITALS: BP 136/80
--- NOTE | 2019-08-15 12:27 | ER Document Report ---
ED Medical Screen (RME) - General Chief Complaint: Back Pain Stated Complaint: BACK PAIN Time Seen by Provider: 08/15/19 12:24 Primary Care Provider: JANES GUERRA DO [Primary Care Provider] - Follow up as needed Mode of Arrival: Ambulatory Information source: Patient Notes: This 33-year-old female with history of high blood pressure presents emergency department with upper back strain. Reports she was moving a dresser to pain it last night. She reports she may have strained her back. Took Tylenol without relief of symptoms. Also complains of headache. Denies fever vomiting diarrhea. Denies pain with void. Reports her left fingers feel numb. Patient drove herself here. I have greeted and performed a rapid initial assessment of this patient. A comprehensive ED assessment and evaluation of the patient, analysis of test results and completion of the medical decision making process will be conducted by additional ED providers. Dictation of this chart was performed using voice recognition software; therefore, there may be some unintended grammatical errors. TRAVEL OUTSIDE OF THE [place] IN LAST 30 DAYS: No - Related Data Allergies/Adverse Reactions: No Known Allergies Allergy (Verified 12/23/18 03:50) Past Medical History - Past Medical History Cardiac Medical History: Reports: Hx Hypertension - MEDICATED Denies: Hx Coronary Artery Disease, Hx Heart Attack Pulmonary Medical History: Denies: Hx Asthma Neurological Medical History: Denies: Hx Cerebrovascular Accident, Hx Seizures Endocrine Medical History: Denies: Hx Diabetes Mellitus Type 1, Hx Diabetes Mellitus Type 2 Renal/ Medical History: Reports: Hx Kidney Stones, Hx Pelvic Inflammatory Disease. Denies: Hx Peritoneal Dialysis GI Medical History: Denies: Hx Hepatitis, Hx Hiatal Hernia, Hx Ulcer Infectious Medical History: Denies: Hx Hepatitis Past Surgical History: Reports: Hx Cholecystectomy, Hx Gynecologic Surgery - bilateral tubal ligation, Hx Tubal Ligation. Denies: Hx Hysterectomy, Hx Mastectomy, Hx Open Heart Surgery, Hx Pacemaker - Immunizations Immunizations up to date: Yes Hx Diphtheria, Pertussis, Tetanus Vaccination: Yes Physical Exam - Vital signs Vitals: Temp Pulse Resp BP Pulse Ox 97.8 F 85 16 136/80 H 98 08/15/19 12:20 08/15/19 12:20 08/15/19 12:20 08/15/19 12:20 08/15/19 12:20 Course - Vital Signs Vital signs: Temp Pulse Resp BP Pulse Ox 97.8 F 85 16 136/80 H 98 08/15/19 12:20 08/15/19 12:20 08/15/19 12:20 08/15/19 12:20 08/15/19 12:20 Doctor's Discharge - Discharge Referrals: JANES GUERRA DO [Primary Care Provider] - Follow up as needed
[2019-08-15] MEDS ORDERED: KETOROLAC TROMETHAMINE INJ/PF 30 MG/1 ML SDV IM ONE (13:39)
[2019-08-15] MEDS ORDERED: DEXAMETHASONE SOD PHOS INJ 10 MG/1 ML VIAL IM ONE (13:39)
--- NOTE | 2019-08-15 13:44 | ER Document Report ---
ED Neck/Back Problem - General Chief Complaint: Back Pain Stated Complaint: BACK PAIN Time Seen by Provider: 08/15/19 12:24 Primary Care Provider: JANES GUERRA DO [ASSOCIATE] - Follow up in 3-5 days Mode of Arrival: Ambulatory Information source: Patient Notes: 33-year-old female presents to ED with a history of high blood pressure. She states she came in today for upper back strain. She states she was moving to dresser when the pain started last night. States she took Tylenol without any relief. She states she also had a headache but denied any nausea or vomiting. Patient states that at times her fingers feel numb other times they do not. She states that she did drive herself to the emergency room with no difficulty. TRAVEL OUTSIDE OF THE [place] IN LAST 30 DAYS: No - Related Data Allergies/Adverse Reactions: No Known Allergies Allergy (Verified 12/23/18 03:50) Past Medical History - General Information source: Patient - Social History Smoking Status: Former Smoker Chew tobacco use (# tins/day): No Frequency of alcohol use: Rare Drug Abuse: None Occupation: [employer] Lives with: Family Family History: Reviewed & Not Pertinent Patient has suicidal ideation: No Patient has homicidal ideation: No - Past Medical History Cardiac Medical History: Reports: Hx Hypertension - MEDICATED Pulmonary Medical History: Reports: None EENT Medical History: Reports: None Neurological Medical History: Reports: None Renal/ Medical History: Reports: Hx Kidney Stones, Hx Pelvic Inflammatory Disease Malignancy Medical History: Reports: None GI Medical History: Reports: None Musculoskeletal Medical History: Reports None Skin Medical History: Reports None Psychiatric Medical History: Reports: None Traumatic Medical History: Reports: None Infectious Medical History: Reports: None Past Surgical History: Reports: Hx Cholecystectomy, Hx Gynecologic Surgery - bilateral tubal ligation, Hx Tubal Ligation - Immunizations Immunizations up to date: Yes Hx Diphtheria, Pertussis, Tetanus Vaccination: Yes Review of Systems - Review of Systems Constitutional: No symptoms reported EENT: No symptoms reported Cardiovascular: No symptoms reported Respiratory: No symptoms reported Gastrointestinal: No symptoms reported Genitourinary: No symptoms reported Female Genitourinary: No symptoms reported Musculoskeletal: Back pain, Muscle pain, Muscle stiffness Skin: No symptoms reported Hematologic/Lymphatic: No symptoms reported Neurological/Psychological: No symptoms reported -: Yes All other systems reviewed and negative Physical Exam - Vital signs Vitals: Temp Pulse Resp BP Pulse Ox 97.8 F 85 16 136/80 H 98 08/15/19 12:20 08/15/19 12:20 08/15/19 12:20 08/15/19 12:20 08/15/19 12:20 Interpretation: Normal - General General appearance: Appears well, Alert - HEENT Head: Normocephalic, Atraumatic Eyes: Normal Pupils: PERRL - Respiratory Respiratory status: No respiratory distress Chest status: Nontender Breath sounds: Normal Chest palpation: Normal - Cardiovascular Rhythm: Regular Heart sounds: Normal auscultation Murmur: No - Abdominal Inspection: Normal Distension: No distension Bowel sounds: Normal Tenderness: Nontender Organomegaly: No organomegaly - Back Back: Normal, Tender - Upper back bilaterally. No: Deformity/step-off, CVA tenderness, Vertebra tenderness, Scars, Scoliosis, Wounds - Extremities General upper extremity: Normal inspection, Nontender, Normal color, Normal ROM, Normal temperature General lower extremity: Normal inspection, Nontender, Normal color, Normal ROM, Normal temperature, Normal weight bearing. 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 Patient has full range of motion of both arms no numbness or tingling at time of discharge patient was given instructions for ibuprofen ice packs warm packs and to follow-up with her primary doctor. Patient was able to verbalize understanding and agreement with treatment plan. - Vital Signs Vital signs: Temp Pulse Resp BP Pulse Ox 97.8 F 85 16 136/80 H 98 08/15/19 12:20 08/15/19 12:20 08/15/19 12:20 08/15/19 12:20 08/15/19 12:20 Discharge - Discharge Clinical Impression: upper back pain bilateral Condition: Stable Disposition: HOME, SELF-CARE Additional Instructions: Muscle Strain You have strained a muscle -- torn the fibers within the muscle. This often occurs with strenuous exertion, or during an injury that suddenly stretches the muscle. The seriousness of a strain varies. Some strains heal within days, others cause problems for months. X-rays cannot show a muscle strain. X-rays are taken only if symptoms suggest that a fracture could be present. The usual treatment of a muscle strain is rest and ice packs. Sometimes, a sling, splint, or crutches may be necessary to rest the muscle. The muscle can be used again once pain subsides. Severe strains require a special exercise and stretching program to prevent permanent stiffness and disability. Your doctor will advise you if this will be necessary. Call the doctor immediately if pain or swelling becomes severe, or if numbness or discoloration develop. MUSCLE RELAXERS: Muscle relaxing medications are usually prescribed for acute muscle spasm or injury to the neck and back. They are often combined with antiinflammatory pain medication for increased relief. You may stop the muscle relaxer when the pain and stiffness have improved. Start the medication again if spasms recur. Muscle relaxers may cause drowsiness, especially with the first dose. Do not operate machinery or drive while under the effects of the medication. Most muscle relaxers last up to 24 hours. Do not combine the medication with alcohol. ICE PACKS: Apply ice packs frequently against the painful area. Many different schedules are recommended, such as "20 minutes on, 20 minutes off" or "one hour ice, two hours rest." If you need to work, you may need to go longer between ice treatments. You should plan to have the area ice packed AT LEAST one fourth of the time. The ice should be applied over the wrap, tape, or splint, or over a layer of cloth -- not directly against the skin. Some ice bags have a built-in cloth and can be put directly on the skin. WARM PACKS: After approximately two days, apply gentle heat (such as a heating pad or hot water bottle) for about 20 to 30 minutes about every two hours -- at least four times daily. Warmth and elevation will help you make a more rapid recovery, and will ease the pain considerably. Do not use HOT heat, and never apply heat for longer than 30 minutes. The continuous heat can invisibly damage skin and muscles -- even when no burn is seen on the surface. Damaged muscles can make you MORE sore. Toradol Injection You have been given an injection of ketorolac tromethamine (Toradol). This is an excellent, safe drug for pain control. It also has potent anti inflammatory action. You should have significant pain relief within about one hour. Toradol is not addicting and is non-sedating. It does not interfere with driving or work. Call or return if you develop itching, hives, shortness of breath, or rash. STEROID MEDICATION: You have been given an injection of medicine of the cortisone/steroid class. This medication is used to control inflammation or allergy. It is often continued as a pill for a short period of time, until the acute process subsides. There are usually no side effects from short-term use of cortisone-like m edications. Some persons feel an increased sense of well-being and are not sleepy at bedtime. Long-term use of cortisone medications is best avoided, unless required for a severe condition. If your condition does not remit, or relapses after the course of corticosteroid medication, you should consult your physician. Exercise Program for the Shoulder Since the shoulder moves in so many directions, the joint attachment is weak. Muscles provide most of the stability to the shoulder. You must exercise your shoulder to prevent painful instability or stiffening. PASSIVE - These may be begun within a few days of the injury. While standing, lean forward, allowing the arm to hang down towards the floor. Move the arm in small circles while slowly twisting your chest towards and away from the hanging arm. Do this for one minute. ACTIVE - These may be performed when the doctor gives permission. Begin with the arms at the sides. Raise the arms forward (shoulder's width apart) until they reach shoulder level. Then slowly swing both arms back until they are aiming straight out away from each other. Then bring them forward again, and finally, lower them to your sides. Repeat 20 to 30 times. As you improve, put weights in your hands for the exercise. Start with one pound, and work up to 10 pounds. Never use more than is comfortable. Athletes may work up to 30 pound s. FOLLOW-UP CARE: If you have been referred to a physician for follow-up care, call the physicians office for an appointment as you were instructed or within the next two days. If you experience worsening or a significant change in your symptoms, notify the physician immediately or return to the Emergency Department at any time for re-evaluation. Prescriptions: Cyclobenzaprine HCl [Flexeril 5 mg Tablet] 5 - 10 mg PO TID PRN #15 tablet PRN Reason: For Pain Scale 3-5 Forms: Elevated Blood Pressure, Return to Work Referrals: JANES GUERRA DO [ASSOCIATE] - Follow up in 3-5 days
== END 2019-08-15 14:10 | disposition home or self-care (01) ==
LOC: ER 12:16
DX: M54.9 Dorsalgia, unspecified (principal); M79.10 Myalgia, unspecified site; X50.0XXA Overexertion from strenuous movement or load, initial encounter; Y93.89 Activity, other specified; R51 Headache; R20.0 Anesthesia of skin; I10 Essential (primary) hypertension; Z87.891 Personal history of nicotine dependence
CPT/HCPCS: 81025; J1885; J1100; 96372; 99283

== ENCOUNTER 2019-12-20 06:19 | Emergency (ER) | payer BC, MEDICAID ==
[2019-12-20 06:32] VITALS: BP 136/72
[2019-12-20] MEDS ORDERED: LIDOCAINE 5% (700 MG) TRANSDERMAL ADH..PATCH TP ONE (07:19)
[2019-12-20] MEDS ORDERED: PROCHLORPERAZINE EDISYLATE INJ 10 MG/2 ML VIAL IV ONE (09:21)
[2019-12-20] MEDS ORDERED: DIPHENHYDRAMINE HCL 50 MG/ML VIAL IV ONE (09:21)
[2019-12-20] MEDS ORDERED: NORMAL SALINE 1000 ML 1,000 ML IV ONE (09:22)
--- NOTE | 2019-12-20 18:22 | ER Document Report ---
Entered by BARBIE JACKSON SCRIBE 12/20/19 0752 Acting as scribe for:RANDEE BENNETT DO ED General - General Chief Complaint: Headache Stated Complaint: NECK AND BACK PAIN Time Seen by Provider: 12/20/19 06:38 Mode of Arrival: Ambulatory Information source: Patient Notes: This 34-year-old female patient presents to the emergency department today with complaints of right-sided shoulder and neck pain. Patient states she has had this pain for the last three days which is exacerbated with head and upper extremity movement. Patient states she thinks she "slept on her pillow wrong" as she woke up with the pain 3 days ago. Patient has tried icy hot and Tylenol at home with no relief. Patient denies any trauma. Patient does mention that she has to lift a lot at work but denies any new/unusual activity or trauma. TRAVEL OUTSIDE OF THE [place] IN LAST 30 DAYS: No - Related Data Allergies/Adverse Reactions: No Known Allergies Allergy (Verified 12/23/18 03:50) Home Medications: lisinoril/HCTZ. allery med. heartburn med Past Medical History - General Information source: Patient - Social History Smoking Status: Never Smoker Cigarette use (# per day): No Frequency of alcohol use: None Drug Abuse: None Lives with: Family Family History: Reviewed & Not Pertinent Patient has suicidal ideation: No Patient has homicidal ideation: No - Past Medical History Cardiac Medical History: Reports: Hx Hypertension Renal/ Medical History: Reports: Hx Kidney Stones, Hx Pelvic Inflammatory Disease Past Surgical History: Reports: Hx Cholecystectomy, Hx Gynecologic Surgery - bilateral tubal ligation, Hx Tubal Ligation - Immunizations Immunizations up to date: Yes Hx Diphtheria, Pertussis, Tetanus Vaccination: Yes Review of Systems - Review of Systems Constitutional: denies: Fever EENT: No symptoms reported Cardiovascular: No symptoms reported Respiratory: No symptoms reported Gastrointestinal: No symptoms reported Genitourinary: No symptoms reported Female Genitourinary: No symptoms reported Musculoskeletal: See HPI, Joint pain - right shoulder/neck pain Skin: No symptoms reported Hematologic/Lymphatic: No symptoms reported Neurological/Psychological: No symptoms reported -: Yes All other systems reviewed and negative Physical Exam - Vital signs Vitals: Temp Pulse Resp BP Pulse Ox 97.5 F 84 16 136/72 H 100 12/20/19 06:25 12/20/19 06:25 12/20/19 06:25 12/20/19 06:25 12/20/19 06:25 - Notes Notes: Physical Exam: General: Alert, appears uncomfortable. HEENT: Normocephalic. Atraumatic. PERRL. Extraocular movements intact. Oropharynx clear. Neck: Supple. Non-tender. Respiratory: No respiratory distress. Clear and equal breath sounds bilaterally. Cardiovascular: Regular rate and rhythm. Abdominal: Normal Inspection. Non-tender. No distension. Normal Bowel Sounds. Back: Tenderness with palpation of the trapezius muscle bilaterally. Extremities: Moves all four extremities. Upper extremities: Normal inspection. Normal ROM. Lower extremities: Normal inspection. No edema. Normal ROM. Neurological: Normal cognition. AAOx4. Normal speech. Psychological: Normal affect. Normal Mood. Skin: Warm. Dry. Normal color. Course - Re-evaluation Re-evalutation: 12/20/19 10:27 Reports she feels better after medications, requests to have head of bed l owered. 12/20/19 Patient with headache and neck pain over the last few days. Feels much better after headache cocktail. Patient will be discharged home and is to follow-up with her primary care doctor. Symptoms are not consistent with any intracranial injury or surgical emergency. To be discharged home and is to follow-up with her doctor. Understands agrees with plan. Stable for discharge. - Vital Signs Vital signs: Temp Pulse Resp BP Pulse Ox 97.5 F 84 16 136/72 H 100 12/20/19 06:25 12/20/19 06:25 12/20/19 06:25 12/20/19 06:25 12/20/19 06:25 Discharge - Discharge Clinical Impression: Trapezius muscle spasm Headache Qualifiers: Headache type: unspecified Headache chronicity pattern: acute headache Intractability: not intractable Qualified Code(s): R51 - Headache Condition: Stable Disposition: HOME, SELF-CARE Instructions: Headache ([facility]), Muscle Strain ([facility]) Prescriptions: Ondansetron [Zofran Odt 4 mg Tablet] 1 tab PO Q6HP PRN #15 tab.rapdis PRN Reason: For Nausea/Vomiting Cyclobenzaprine HCl [Flexeril 10 mg Tablet] 10 mg PO TIDP PRN #15 tab PRN Reason: Metoclopramide HCl [Reglan 10 mg Tablet] 1 - 2 tab PO ASDIR PRN #25 tablet PRN Reason: Forms: Return to Work I personally performed the services described in the documentation, reviewed and edited the documentation which was dictated to the scribe in my presence, and it accurately records my words and actions.
== END 2019-12-20 13:31 | disposition home or self-care (01) ==
LOC: ER 06:19
DX: M62.830 Muscle spasm of back (principal); M25.511 Pain in right shoulder; M54.2 Cervicalgia; R51 Headache; R12 Heartburn; I10 Essential (primary) hypertension; Z79.899 Other long term (current) drug therapy
CPT/HCPCS: 99283; 96361; 96374; 96375; J1200; J0780; J7030

== ENCOUNTER 2020-01-29 05:16 | Emergency (ER) | payer BC ==
[2020-01-29 05:21] VITALS: BP 132/72
--- NOTE | 2020-01-29 06:09 | ER Document Report ---
HPI - HPI Time Seen by Provider: 01/29/20 05:53 Pain Level: Denies Notes: 34-year-old female patient presenting to the emergency department requesting a work note. Patient reports yesterday she had 2 episodes of diarrhea. This morning she went to work and vomited once. She states she feels fine. She states she has a sour feeling in her stomach and thinks she ate something that was bad. She has no abdominal pain, no fever and no persistent symptoms. She states she cannot go back to work until she has a work note. - CONSTITUTIONAL Constitutional: DENIES: Fever, Chills - GASTROINTESTINAL Gastrointestinal: REPORTS: Abdominal Pain - REPRODUCTIVE Reproductive: DENIES: : Past Medical History - General Information source: Patient - Social History Smoking Status: Never Smoker Chew tobacco use (# tins/day): No Frequency of alcohol use: Rare Drug Abuse: None Family History: Reviewed & Not Pertinent Patient has suicidal ideation: No Patient has homicidal ideation: No - Past Medical History Cardiac Medical History: Reports: Hx Hypertension Denies: Hx Coronary Artery Disease, Hx Heart Attack Pulmonary Medical History: Denies: Hx Asthma Neurological Medical History: Denies: Hx Cerebrovascular Accident, Hx Seizures Endocrine Medical History: Denies: Hx Diabetes Mellitus Type 1, Hx Diabetes Mellitus Type 2 Renal/ Medical History: Reports: Hx Kidney Stones, Hx Pelvic Inflammatory Disease. Denies: Hx Peritoneal Dialysis GI Medical History: Denies: Hx Hepatitis, Hx Hiatal Hernia, Hx Ulcer Infectious Medical History: Denies: Hx Hepatitis Past Surgical History: Reports: Hx Cholecystectomy, Hx Gynecologic Surgery - bilateral tubal ligation, Hx Tubal Ligation. Denies: Hx Hysterectomy, Hx Mastectomy, Hx Open Heart Surgery, Hx Pacemaker - Immunizations Immunizations up to date: Yes Hx Diphtheria, Pertussis, Tetanus Vaccination: Yes Vertical Provider Document - CONSTITUTIONAL Notes: PHYSICAL EXAMINATION: GENERAL: Well-appearing, well-nourished and in no acute distress. HEAD: Atraumatic, normocephalic. EYES: Pupils equal round and reactive to light, extraocular movements intact, conjunctiva are normal. ENT: Nares patent, oropharynx clear without exudates. Moist mucous membranes. NECK: Normal range of motion, supple without lymphadenopathy LUNGS: Breath sounds clear to auscultation bilaterally and equal. No wheezes rales or rhonchi. HEART: Regular rate and rhythm without murmurs ABDOMEN: Soft, nontender, nondistended abdomen. No guarding, no rebound. No masses appreciated. Female : deferred Musculoskeletal: Normal range of motion, no pitting or edema. No cyanosis. NEUROLOGICAL: Cranial nerves grossly intact. Normal speech, normal gait. Normal sensory, motor exams PSYCH: Normal mood, normal affect. SKIN: Warm, Dry, normal turgor, no rashes or lesions noted. - INFECTION CONTROL TRAVEL OUTSIDE OF THE [place] IN LAST 30 DAYS: No Course - Re-evaluation Re-evalutation: Patient's abdomen is soft and nontender. Her vital signs are within normal limits. Patient declines any work-up today. She was given a work note to return to work tomorrow. ED return precautions were discussed, patient verbalized understanding and agreement with same. - Vital Signs Vital signs: Temp Pulse Resp BP Pulse Ox 98.2 F 80 16 132/72 H 100 01/29/20 05:20 01/29/20 05:20 01/29/20 05:20 01/29/20 05:20 01/29/20 05:20 Discharge - Discharge Clinical Impression: Nausea vomiting and diarrhea Condition: Stable Disposition: HOME, SELF-CARE Additional Instructions: Diarrhea Diarrhea means frequent, watery stools. There are many causes. Any problem that keeps the intestinal tract from absorbing water from the stool can lead to diarrhea. A sudden new diarrhea problem is usually caused by a virus, food sensitivity, toxic bacteria, or drugs. In this case, we expect the problem to go away soon. Testing is done only if you seem seriously ill from the diarrhea. If you have chronic diarrhea, or diarrhea that keeps coming back, we need to find out why. Chronic diarrhea can be due to inflammation of the bowels such as Crohn's disease or ulcerative colitis, food sensitivity such as intolerance to lactose or wheat protein, irritable bowel syndrome, and other problems. If your diarrhea is a significant problem but it's not clear why you have it, we'll refer you to a specialist for further testing. During an episode of diarrhea, drink small amounts (two to six ounces) of clear liquids (soft drinks, sport drinks, herb teas, broth, etc). Take fluids frequently to prevent dehydration. It's usually not a problem to take mild anti- diarrhea medication such as Kaopectate or Pepto-Bismol. As the diarrhea eases, advance to small amounts of bland food (mashed potato, toast) for 24 hours. Call the physician if blood appears in your vomit or stool, if vomiting lasts longer than 24 hours, if the abdominal pain worsens or becomes localized to one area, if you develop high fever, or if you become lightheaded and weak. Vomiting Vomiting (or nausea without vomiting) can be caused by many other different problems. It can mean that something's wrong with the stomach, such as ulcers or inflammation or the intestinal tract, such as appendicitis. But it can also be a symptom of a problem that has nothing to do with the stomach or intestines. Vomiting is common with severe headaches, earaches, tonsillitis, and kidney infections, etc. We see it with pneumonia or heart attacks. Drugs can cause nausea and vomiting. Many abdominal problems cause vomiting; for example, gallstones, kidney stones, pancreatitis, and intestinal obstruction (blocked bowels). In most cases, curing the vomiting depends on fixing the problem that caused it. For temporary relief, we may use an anti-nausea medicine. For home use, we can prescribe suppositories, chewable pills, pills that dissolve in the mouth, or liquid anti-nausea drugs. If the vomiting seems to be caused by a problem in the stomach, acid-suppressing drugs may be prescribed as well. It's important to avoid dehydration. Sip small amounts of clear liquids (soft drinks, tea, broth, etc) . Try to take fluids frequently even if you are vomiting to prevent dehydration. Take increasing amounts of fluid and when liquids are being consumed successfully, advance to small amounts of bland food (toast, soups, mashed potatoes, etc.) until you are able to resume a regular diet. Avoid aspirin, tobacco, and alcohol. If the vomiting worsens, if the problem that's making you vomit worsens, or if there's evidence of bleeding in the stomach (such as black, tarry stool, or bloody or black vomit), you should return immediately. Also, return if abdominal pain worsens or becomes localized to one area or you develop high fever. Call your doctor if you aren't improved in 24 hours. Prescriptions: Promethazine HCl [Phenergan 25 mg Tablet] 1 - 2 tab PO Q6H PRN #15 tablet PRN Reason: Forms: Return to Work
== END 2020-01-29 06:25 | disposition home or self-care (01) ==
LOC: ER 05:16
DX: R11.2 Nausea with vomiting, unspecified (principal); R19.7 Diarrhea, unspecified; R10.9 Unspecified abdominal pain; I10 Essential (primary) hypertension; Z87.442 Personal history of urinary calculi; Z90.49 Acquired absence of other specified parts of digestive tract; Z98.51 Tubal ligation status
CPT/HCPCS: 99283

== ENCOUNTER 2020-02-21 04:51 | Emergency (ER) | payer BC ==
[2020-02-21 04:58] VITALS: BP 139/81
[2020-02-21] MEDS ORDERED: DEXAMETHASONE SOD PHOSPHATE INJ 4 MG/1 ML VIAL IM ONE (05:15)
[2020-02-21] MEDS ORDERED: ACETAMINOPHEN 325 MG TABLET PO ONE (05:16)
--- NOTE | 2020-02-21 05:22 | ER Document Report ---
ED Skin Rash/Insect Bite/Abscs - General Chief Complaint: Rash Stated Complaint: RASH,RIGHT FOOT PAIN Time Seen by Provider: 02/21/20 05:06 Notes: 34 year old female arrives with left arm and neck redness, mild swelling and itching. She feels she may have gotten something on her from her husbands clothes. He was pruning bushes/ shrubs today for his job. 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 TRAVEL OUTSIDE OF THE [place] IN LAST 30 DAYS: No - HPI Patient complains to provider of: Skin rash/lesion. No: Insect bite, Tick bite, Insect sting Onset: Yesterday Onset/Duration: Gradual Quality of pain: No pain Severity: Moderate Skin Character: Erythema Skin Temperature: Warm Quality of rash: Itchy, Burning. No: Painful - Related Data Allergies/Adverse Reactions: No Known Allergies Allergy (Verified 12/23/18 03:50) Past Medical History - Social History Smoking Status: Unknown if Ever Smoked Family History: Reviewed & Not Pertinent - Past Medical History Cardiac Medical History: Reports: Hx Hypertension Denies: Hx Coronary Artery Disease, Hx Heart Attack Pulmonary Medical History: Denies: Hx Asthma Neurological Medical History: Denies: Hx Cerebrovascular Accident, Hx Seizures Endocrine Medical History: Denies: Hx Diabetes Mellitus Type 1, Hx Diabetes Mellitus Type 2 Renal/ Medical History: Reports: Hx Kidney Stones, Hx Pelvic Inflammatory Disease. Denies: Hx Peritoneal Dialysis GI Medical History: Denies: Hx Hepatitis, Hx Hiatal Hernia, Hx Ulcer Infectious Medical History: Denies: Hx Hepatitis Past Surgical History: Reports: Hx Cholecystectomy, Hx Gynecologic Surgery - bi lateral tubal ligation, Hx Tubal Ligation. Denies: Hx Hysterectomy, Hx Mastectomy, Hx Open Heart Surgery, Hx Pacemaker - Immunizations Immunizations up to date: Yes Hx Diphtheria, Pertussis, Tetanus Vaccination: Yes Review of Systems - Review of Systems Constitutional: No symptoms reported EENT: No symptoms reported Cardiovascular: No symptoms reported Respiratory: No symptoms reported Gastrointestinal: No symptoms reported Genitourinary: No symptoms reported Female Genitourinary: No symptoms reported Musculoskeletal: See HPI, Other - foot pain. denies: No symptoms reported Skin: See HPI, Rash. denies: No symptoms reported Hematologic/Lymphatic: No symptoms reported Neurological/Psychological: No symptoms reported Physical Exam - Vital signs Vitals: Temp Pulse Resp BP Pulse Ox 97.5 F 76 18 139/81 H 99 02/21/20 04:55 02/21/20 04:55 02/21/20 04:55 02/21/20 04:55 02/21/20 04:55 Interpretation: Normal - General General appearance: Appears well, Alert - HEENT Head: Normocephalic, Atraumatic Eyes: Normal Pupils: PERRL - Respiratory Respiratory status: No respiratory distress Chest status: Nontender Breath sounds: Normal Chest palpation: Normal - Cardiovascular Rhythm: Regular Heart sounds: Normal auscultation Murmur: No - Abdominal Inspection: Normal Distension: No distension Bowel sounds: Normal Tenderness: Nontender Organomegaly: No organomegaly - Back Back: Normal, Nontender - Extremities General upper extremity: Normal inspection, Nontender, Normal color, Normal ROM, Normal temperature General lower extremity: Normal inspection, Nontender, Normal color, Normal ROM, Normal temperature, Normal weight bearing, Other - R foot plantar surface with ttp without deformity. Mid foot and forefoot ttp.. No: Viviana's sign - Neurological Neuro grossly intact: Yes Cognition: Normal Orientation: AAOx4 [place] Coma Scale Eye Opening: Spontaneous [place] Coma Scale Verbal: Oriented [place] Coma Scale Motor: Obeys Commands [place] Coma Scale Total: 15 Speech: Normal Motor strength normal: LUE, RUE, LLE, RLE Sensory: Normal - Psychological Associated symptoms: Normal affect, Normal mood - Skin Skin Temperature: Warm Skin Moisture: Dry Skin Color: Erythema. negative: Normal Skin Turgor: Elastic - anticubital region with puritis and mild erythema. Rash is consistent with acute allergic reaction. Course - Vital Signs Vital signs: Temp Pulse Resp BP Pulse Ox 97.9 F 76 18 139/81 H 99 02/21/20 05:00 02/21/20 04:55 02/21/20 04:55 02/21/20 04:55 02/21/20 04:55 Discharge - Discharge Clinical Impression: Plantar fasciitis of right foot Allergic reaction Qualifiers: Encounter type: initial encounter Qualified Code(s): T78.40XA - Allergy, unspecified, initial encounter Condition: Good Disposition: HOME, SELF-CARE Instructions: Acute Allergic Reaction ([facility]), Contact Dermatitis ([facility]) Additional Instructions: Rest, ice and elevate right foot. Tylenol for pain. Use hydrocortisone to the rash. Take the medicine as perscribed. Please return here for any problems or any concerns. Prescriptions: Prednisone 10 mg PO DAILY #21 tablet Forms: Return to Work
== END 2020-02-21 05:35 | disposition home or self-care (01) ==
LOC: ER 04:51
DX: M72.2 Plantar fascial fibromatosis (principal); T78.40XA Allergy, unspecified, initial encounter; X58.XXXA Exposure to other specified factors, initial encounter; R21 Rash and other nonspecific skin eruption; L29.9 Pruritus, unspecified; I10 Essential (primary) hypertension
CPT/HCPCS: 99283

== ENCOUNTER 2020-05-06 07:35 | Emergency (ER) | payer BC ==
--- NOTE | 2020-05-06 08:33 | ER Document Report ---
HPI - HPI Time Seen by Provider: 05/06/20 08:15 Pain Level: 3 Context: Patient is a 34-year-old female with a history of hypertension who presents the emergency department with a chief complaint of neck pain and upper back pain. Patient states that she has had her symptoms for the past 2 days. 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 Patient states that she has been doing lots of heavy lifting. States that she does have some tingling that goes from her shoulders all the way down to her hands. The tingling comes and goes. She asked her boyfriend to massage her back, and she states that it felt worse. She was taking Tylenol, but had little relief. - CONSTITUTIONAL Constitutional: DENIES: Fever, Chills - REPRODUCTIVE Reproductive: DENIES: : - MUSCULOSKELETAL Musculoskeletal: REPORTS: Extremity pain - Bilateral shoulders, Back Pain - Upper, Neck Pain - Bilateral. DENIES: Swelling - DERM Skin Color: Normal Skin Problems: None Past Medical History - Social History Smoking Status: Never Smoker Family History: Reviewed & Not Pertinent - Past Medical History Cardiac Medical History: Reports: Hx Hypertension Denies: Hx Coronary Artery Disease, Hx Heart Attack Pulmonary Medical History: Denies: Hx Asthma Neurological Medical History: Denies: Hx Cerebrovascular Accident, Hx Seizures Endocrine Medical History: Denies: Hx Diabetes Mellitus Type 1, Hx Diabetes Mellitus Type 2 Renal/ Medical History: Reports: Hx Kidney Stones, Hx Pelvic Inflammatory Disease. Denies: Hx Peritoneal Dialysis GI Medical History: Denies: Hx Hepatitis, Hx Hiatal Hernia, Hx Ulcer Infectious Medical History: Denies: Hx Hepatitis Past Surgical History: Reports: Hx Cholecystectomy, Hx Gynecologic Surgery - bilateral tubal ligation, Hx Tubal Ligation. Denies: Hx Hysterectomy, Hx Mastectomy, Hx Open Heart Surgery, Hx Pacemaker - Immunizations Immunizations up to date: Yes Hx Diphtheria, Pertussis, Tetanus Vaccination: Yes Vertical Provider Document - CONSTITUTIONAL Agree With Documented VS: Yes Exam Limitations: No Limitations General Appearance: No Apparent Distress - INFECTION CONTROL TRAVEL OUTSIDE OF THE [place] IN LAST 30 DAYS: No - HEENT HEENT: Atraumatic, Normocephalic, PERRLA - NECK Neck: Normal Inspection - RESPIRATORY Respiratory: Breath Sounds Normal, No Respiratory Distress - CARDIOVASCULAR Cardiovascular: Regular Rate, Regular Rhythm Pulses: Normal: Radial - MUSCULOSKELETAL/EXTREMETIES Musculoskeletal/Extremeties: FROM, Tender - Paraspinal muscles of neck and back. No point tenderness noted - NEURO Level of Consciousness: Awake, Alert, Appropriate Motor/Sensory: No Motor Deficit, No Sensory Deficit - DERM Integumentary: Warm, Dry, No Rash Course - Re-evaluation Re-evalutation: 05/06/20 08:32 Physical exam is consistent with muscle tension in upper back and bilateral shoulders. Patient will be started on Flexeril. Capillary refill less than 3 seconds. Radial pulse 2+. No vascular compromise noted. Patient will also follow-up with her primary care provider for physical therapy referral. Follow- up precautions were given. Verbal discharge instructions were given to the patient. They verbalized understanding. They are stable for discharge. - Vital Signs Vital signs: Temp Pulse Resp BP Pulse Ox 98.1 F 63 16 125/66 100 05/06/20 08:05 05/06/20 07:38 05/06/20 07:38 05/06/20 07:38 05/06/20 07:38 Discharge - Discharge Clinical Impression: Upper back pain, Neck pain Condition: Stable Disposition: HOME, SELF-CARE Additional Instructions: You were seen today in the emergency department for neck pain and shoulder pain. Your pain is due to muscle tension in your back, neck, and shoulders. Follow- up with your primary care provider. See if he can get a referral for physical therapy. Take Flexeril as prescribed. Continue to take Tylenol 1000 mg every 6 hours for your pain. Prescriptions: Cyclobenzaprine HCl [Flexeril 10 mg Tablet] 10 mg PO TIDP PRN #15 tab PRN Reason: Forms: Return to Work Referrals: WAQAS REED FNP-C [NURSE PRACTITIONER] - Follow up as needed
[2020-05-06 09:02] VITALS: BP 127/73
== END 2020-05-06 09:02 | disposition home or self-care (01) ==
LOC: ER 07:35
DX: M54.6 Pain in thoracic spine (principal); M54.2 Cervicalgia; I10 Essential (primary) hypertension; M25.511 Pain in right shoulder; M25.512 Pain in left shoulder
CPT/HCPCS: 99283

== ENCOUNTER 2020-07-13 06:07 | Emergency (ER) | payer OTHER, BC ==
[2020-07-13] MEDS ORDERED: ONDANSETRON HCL INJ/PF 4 MG/2 ML SDV IV ONE (06:58)
[2020-07-13] MEDS ORDERED: MORPHINE SULFATE 10 MG/ML INJ IV ONE (06:58)
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
[2020-07-13] MEDS ORDERED: SILVER SULFADIAZINE 1% CREAM 25 GM TP ONE (07:19)
[2020-07-13 08:04] VITALS: BP 129/75
== END 2020-07-13 08:03 | disposition home or self-care (01) ==
LOC: ER 06:07
DX: T21.21XA Burn of second degree of chest wall, initial encounter (principal); T31.0 Burns involving less than 10% of body surface; X12.XXXA Contact with other hot fluids, initial encounter; Y93.89 Activity, other specified; Y92.89 Other specified places as the place of occurrence of the external cause; Y99.0 Civilian activity done for income or pay; I10 Essential (primary) hypertension; K21.9 Gastro-esophageal reflux disease without esophagitis; Z79.899 Other long term (current) drug therapy; Z87.891 Personal history of nicotine dependence
CPT/HCPCS: 99284; 96374; 96375; J2270; J2405

== ENCOUNTER 2020-09-02 04:23 | Emergency (ER) | payer BC, OTHER ==
[2020-09-02 05:27] LABS: ABSOLUTE EOSINOPHILS # (AUTO) 0.1 10^3/uL (0.0-0.6); ABSOLUTE LYMPHOCYTES (AUTO) 1.7 10^3/uL (0.5-4.7); ABSOLUTE MONOCYTES (AUTO) 0.8 10^3/uL (0.1-1.4); ABSOLUTE NEUT (AUTO) 4.1 10^3/uL (1.7-8.2); BASOPHILS % (AUTO) 0.5 % (0-2); EOSINOPHILS % (AUTO) 1.6 % (0-6); HEMATOCRIT 39.5 % (36.0-47.0); HEMOGLOBIN 13.9 g/dL (12.0-15.5); LYMPHOCYTES % (AUTO) 25.4 % (13-45); MEAN CORPUSCULAR HEMOGLOBIN 33.3 pg (27.0-33.4); MEAN CORPUSCULAR HGB CONC 35.3 g/dL (32.0-36.0); MEAN CORPUSCULAR VOLUME 94 fl (80-97); MONOCYTES % (AUTO) 12.1 % (3-13); PLATELET COUNT 272 10^3/uL (150-450); RED BLOOD COUNT 4.19 10^6/uL (3.72-5.28); SEGMENTED NEUTROPHILS % (AUTO) 60.4 % (42-78); TOTAL CELLS COUNTED % (AUTO) 100 %; WHITE BLOOD COUNT 6.9 10^3/uL (4.0-10.5)
[2020-09-02 05:49] LABS: ALBUMIN 4.3 g/dL (3.5-5.0); ALKALINE PHOSPHATASE 61 U/L (38-126); ANION GAP 9 (5-19); ASPARTATE AMINO TRANSFERASE 21 U/L (14-36); BILIRUBIN,DIRECT 0.1 mg/dL (0.0-0.4); BILIRUBIN,TOTAL 0.6 mg/dL (0.2-1.3); BLOOD UREA NITROGEN 12 mg/dL (7-20); CALCIUM 9.6 mg/dL (8.4-10.2); CARBON DIOXIDE 23 mmol/L (22-30); CHLORIDE 104 mmol/L (98-107); GLUCOSE 101 mg/dL (75-110); POTASSIUM 4.1 mmol/L (3.6-5.0); TOTAL PROTEIN 7.1 g/dL (6.3-8.2)
[2020-09-02 08:02] LABS: APPEARANCE,URINE CLOUDY; BILIRUBIN,URINE NEGATIVE (NEGATIVE); COLOR,URINE YELLOW; GLUCOSE, URINE NEGATIVE (NEGATIVE); KETONES,URINE NEGATIVE (NEGATIVE); LEUKOCYTE ESTERASE,URINE TRACE (NEGATIVE); NITRITE,URINE NEGATIVE (NEGATIVE); PROTEIN,URINE NEGATIVE (NEGATIVE); URINE SPECIFIC GRAVITY 1.023; UROBILINOGEN,URINE NEGATIVE mg/dL (<2.0)
--- NOTE | 2020-09-02 08:19 | ER Document Report ---
Entered by GRUPO MAHAJAN SCRIBE 09/02/20 0746 Acting as scribe for:KYLE ORNELAS MD ED GI/ - General Chief Complaint: Nausea/Vomiting/Diarrhea Stated Complaint: ABDOMINAL PAIN Time Seen by Provider: 09/02/20 07:42 Primary Care Provider: PHILIP TERRAZAS MD [Primary Care Provider] - Follow up as needed Mode of Arrival: Ambulatory Information source: Patient Notes: This 34 year old female patient with a history of hypertension and GERD presents to the ED for evaluation. Patient states her symptoms started with a headache x2 days ago after eating a tang sandwich at 0830 in the morning. She states the next day, she felt fine and went to work and later that night around 2030, she woke up with abdominal cramping and diarrhea. She reports that she had nausea and vomiting this morning and when she went to work around 0400, she still did not feel well and was advised to come to the ED for evaluation and get a return to work form. Denies fever, cough, or loss of smell. Denies any nausea or abdominal pain at this time. TRAVEL OUTSIDE OF THE [place] IN LAST 30 DAYS: No - Related Data Allergies/Adverse Reactions: No Known Allergies Allergy (Verified 09/02/20 04:49) Home Medications: HTN MEDS Past Medical History - General Information source: Patient, OM Records - Social History Smoking Status: Former Smoker - quit in 2012 Cigarette use (# per day): No Chew tobacco use (# tins/day): No Smoking Education Provided: No Frequency of alcohol use: None Drug Abuse: None Lives with: Family Family History: Reviewed & Not Pertinent Patient has suicidal ideation: No Patient has homicidal ideation: No - Past Medical History Cardiac Medical History: Reports: Hx Hypertension Renal/ Medical History: Reports: Hx Kidney Stones, Hx Pelvic Inflammatory Disease GI Medical History: Reports: Hx Gastroesophageal Reflux Disease Past Surgical History: Reports: Hx Cholecystectomy, Hx Tubal Ligation - bilateral - Immunizations Immunizations up to date: Yes Hx Diphtheria, Pertussis, Tetanus Vaccination: Yes Review of Systems - Review of Systems Constitutional: See HPI. denies: Fever EENT: See HPI, Other - Loss of smell Cardiovascular: No symptoms reported Respiratory: See HPI. denies: Cough Gastrointestinal: See HPI, Abdominal pain, Diarrhea, Nausea, Vomiting Genitourinary: No symptoms reported Female Genitourinary: No symptoms reported Musculoskeletal: No symptoms reported Skin: No symptoms reported Hematologic/Lymphatic: No symptoms reported Neurological/Psychological: No symptoms reported -: Yes All other systems reviewed and negative Physical Exam - Vital signs Vitals: Temp Pulse Resp BP Pulse Ox 98.1 F 75 16 125/63 100 09/02/20 04:49 09/02/20 04:49 09/02/20 04:49 09/02/20 04:49 09/02/20 04:49 Interpretation: Normal - General General appearance: Appears well, Alert In distress: None - HEENT Head: Normocephalic, Atraumatic Eyes: Normal Pupils: PERRL - Respiratory Respiratory status: No respiratory distress Chest status: Nontender Breath sounds: Normal Chest palpation: Normal - Cardiovascular Rhythm: Regular Heart sounds: Normal auscultation Murmur: No - Abdominal Inspection: Normal Distension: No distension Bowel sounds: Normal Tenderness: Nontender - Abdomen soft Organomegaly: No organomegaly - Back Back: Normal, Nontender - Extremities General upper extremity: Normal inspection General lower extremity: Normal inspection. No: Edema - Neurological Neuro grossly intact: Yes Orientation: AAOx4 [place] Coma Scale Eye Opening: Spontaneous [place] Coma Scale Verbal: Oriented [place] Coma Scale Motor: Obeys Commands [place] Coma Scale Total: 15 - Psychological Associated symptoms: Normal affect, Normal mood - Skin Skin Temperature: Warm Skin Moisture: Dry Skin Color: Normal Course - Re-evaluation Re-evalutation: 09/02/20 08:19 The patient was evaluated during the global COVID-19 pandemic and that diagnosis was suspected/considered upon their initial presentation. Their evaluation, treatment and testing was consistent with current guidelines for patients who present with complaints or symptoms that may be related to COVID-19. Patient most likely has a viral gastrointestinal virus based on her symptoms. She needs a return to work note. She will receive a Covid test with results coming back in 2 to 3 days. That should be adequate amount of time to rest at home and get over her GI bug and then she can return to work when she gets the negative result from the Covid test. - Vital Signs Vital signs: Temp Pulse Resp BP Pulse Ox 98.0 F 77 18 137/79 H 99 09/02/20 06:47 09/02/20 06:47 09/02/20 06:47 09/02/20 06:47 09/02/20 06:47 - Laboratory Result Diagrams: 09/02/20 05:00 09/02/20 05:00 Laboratory results interpreted by me: 09/02/20 09/02/20 05:00 07:40 Sodium 136.2 L Creatinine 0.51 L Ur Leukocyte Esterase TRACE H Urine Ascorbic Acid 40 H Discharge - Discharge Clinical Impression: Nausea, vomiting and diarrhea Condition: Stable Disposition: HOME, SELF-CARE Instructions: COVID-19 Guidance for Persons Under Investigation Additional Instructions: Gastroenteritis You most likely have gastroenteritis. This is an irritation of the stomach and intestinal tract. It's usually caused by a virus, but can also be caused by bacteria, toxins that cause food poisoning, or excessive alcohol intake. Symptoms may include fever, painful abdominal cramps, nausea, vomiting, and diarrhea. Start with small amounts (two to six ounces) of clear liquids (soft drinks, herb teas, broth, etc). Try to take fluids frequently even if you are vomiting, to prevent dehydration. When liquids are being consumed successfully, advance to small amounts of bland food (mashed potato, toast) for 6 - 12 hours. Gastroenteritis rarely requires medication. It goes away by itself. Use good handwashing so you don't spread germs. Wash underwear in very hot water. If symptoms are severe, talk to the doctor. Call your physician if blood appears in your vomitus or stool, if vomiting lasts longer than 24 hours, if the abdominal pain worsens or becomes localized to one area, or if you develop high fever. Take the Zofran as prescribed for nausea if needed. Drink plenty of cool clear liquids. Get plenty of rest. Self isolate at home until you get the results of the Covid test. RETURN TO THE EMERGENCY ROOM IF ANY NEW OR WORSENING SYMPTOMS. Prescriptions: Ondansetron [Zofran Odt 4 mg Tablet] 1 - 2 tab PO Q4H PRN #14 tab.rapdis PRN Reason: Forms: Special Work Note Referrals: PHIILP TERRAZAS MD [Primary Care Provider] - Follow up as needed I personally performed the services described in the documentation, reviewed and edited the documentation which was dictated to the scribe in my presence, and it accurately records my words and actions.
[2020-09-02 08:32] VITALS: BP 141/80
== END 2020-09-02 08:35 | disposition home or self-care (01) ==
LOC: ER 04:23
DX: R11.2 Nausea with vomiting, unspecified (principal); R19.7 Diarrhea, unspecified; R10.9 Unspecified abdominal pain; R43.9 Unspecified disturbances of smell and taste; I10 Essential (primary) hypertension; Z79.899 Other long term (current) drug therapy; Z87.19 Personal history of other diseases of the digestive system; Z87.891 Personal history of nicotine dependence; Z87.442 Personal history of urinary calculi; Z90.49 Acquired absence of other specified parts of digestive tract; Z98.51 Tubal ligation status; Z20.828 Contact with and (suspected) exposure to other viral communicable diseases
CPT/HCPCS: 99283; 36415; 84702; 83690; 85025; 80053; 81001; U0003; C9803; 87635